=== PATIENT | female | born 1945 | race Two or more races ===

== ENCOUNTER → 2018-07-29 | Outpatient (CLI) | payer OTHER, MEDICAID | END | disposition home or self-care (01) | LOC: Rad HDHVI 08:00 | PROVIDERS: ATTEND Internal Medicine | DX: I08.3 Combined rheumatic disorders of mitral, aortic and tricuspid valves (principal); I10 Essential (primary) hypertension; E78.5 Hyperlipidemia, unspecified | CPT/HCPCS: 93306 ==

== ENCOUNTER → 2018-08-06 | Outpatient (CLI) | payer OTHER, MEDICAID ==
[~2018-08-06] VITALS: Ht 154.9 cm; Wt 79.8 kg
== END | disposition home or self-care (01) ==
LOC: Rad HDHVI 09:09
PROVIDERS: ATTEND Internal Medicine
DX: I10 Essential (primary) hypertension (principal); E03.9 Hypothyroidism, unspecified; E78.5 Hyperlipidemia, unspecified; I38 Endocarditis, valve unspecified; R63.8 Other symptoms and signs concerning food and fluid intake; Z86.79 Personal history of other diseases of the circulatory system
CPT/HCPCS: 78452; 93017; 96374; A9500

== ENCOUNTER → 2019-05-03 | Outpatient (CLI) | payer OTHER, MEDICAID | END | disposition home or self-care (01) | LOC: Rad HDHVI 08:03 | PROVIDERS: ATTEND Internal Medicine | DX: I11.9 Hypertensive heart disease without heart failure (principal); I35.0 Nonrheumatic aortic (valve) stenosis; E78.5 Hyperlipidemia, unspecified | CPT/HCPCS: 93306 ==

== ENCOUNTER → 2019-07-07 | Outpatient (CLI) | payer OTHER, MEDICAID | END | disposition home or self-care (01) | LOC: Rad HDHVI 08:31 | PROVIDERS: ATTEND Internal Medicine | DX: R09.89 Other specified symptoms and signs involving the circulatory and respiratory systems (principal); G45.9 Transient cerebral ischemic attack, unspecified | CPT/HCPCS: 93880 ==

== ENCOUNTER → 2021-06-26 | Outpatient (CLI) | payer OTHER, MEDICAID | END | disposition home or self-care (01) | LOC: Rad HDHVI 14:50 | PROVIDERS: ATTEND Internal Medicine | DX: I08.3 Combined rheumatic disorders of mitral, aortic and tricuspid valves (principal); I11.9 Hypertensive heart disease without heart failure; R06.02 Shortness of breath | CPT/HCPCS: 93306 ==

== ENCOUNTER → 2022-04-29 | Outpatient (CLI) | payer OTHER, MEDICAID, MEDICARE | END | disposition home or self-care (01) | LOC: Rad HDHVI 08:06 | PROVIDERS: ATTEND Internal Medicine | DX: I08.2 Rheumatic disorders of both aortic and tricuspid valves (principal); R07.89 Other chest pain; I10 Essential (primary) hypertension | CPT/HCPCS: 93306 ==

== ENCOUNTER → 2022-10-16 | Day surgery (SDC) | payer OTHER, MEDICAID ==
[2022-10-14 10:10] LABS: Basophils # (auto) 0.1 10 ^3/uL (0-0.2); Eosinophils # (auto) 0.2 10 ^3/uL (0-0.8); Eosinophils % (auto) 2.9 % (0.0-7.0); Lymphocytes # (auto) 2.2 10 ^3/uL (0.4-5.4); Monocytes # (auto) 0.5 10 ^3/uL (0-1.3); Neutrophils # (auto) 4.7 10 ^3/uL (1.6-8.6); Red Cell Distribution Width 17.6 % (11.8-14.3)
[2022-10-14 10:13] LABS: Basophils % (auto) 1.1 % (0.0-2.0); Hematocrit 29.5 % (36.0-46.0); Hemoglobin 9.3 g/dL (12.2-16.2); Lymphocytes % (auto) 28.9 % (10.0-50.0); Mean Corpuscular Hemoglobin 22.9 pg (28.0-32.0); Mean Corpuscular Hgb Conc. 31.6 g/dL (32.0-36.0); Mean Corpuscular Volume 72.3 fL (80.0-100.0); Monocytes % (auto) 6.3 % (0.0-12.0); Neutrophils % (auto) 60.8 % (37.0-80.0); Red Blood Cells 4.08 10^6/uL (4.0-5.20); White Blood Cell 7.7 10^3/uL (4.4-10.8)
[2022-10-14 10:25] LABS: INR 1.03 (0.9-1.15); Partial Thromboplastin Time 28.8 sec (24.6-33.4)
[2022-10-14 10:47] LABS: Albumin 3.1 g/dL (3.4-5.0); BUN/Creatinine Ratio 21.7; Bilirubin, Total 0.3 mg/dL (0.2-1.0); Calcium 8.5 mg/dL (8.5-10.1); Potassium 4.2 mmol/L (3.5-5.1)
[~2022-10-16] VITALS: Ht 154.9 cm; Wt 73.5 kg
[~2022-10-16] MED LIST: AML5T PO; ASPI81CH59 PO; ATOR20TA PO; CHOL200021 PO; LEVO25TA6 PO; LOSA-69 PO; METO25TA5 PO; OMEP20TA PO; SACC250C PO
[2022-10-16] MEDS: fentaNYL CITRATE 100 MCG/2 ML VL ONE ×2 (15:38→15:44)
[2022-10-16] MEDS: MIDAZOLAM HCL 5 MG/ML-1ML VIAL ONE ×2 (15:38→15:44)
[2022-10-16] MEDS: diphenhdrAMINE HCL 50 MG/1 ML VL ONE ×2 (15:38→15:41)
[2022-10-16 16:25] VITALS: BP 156/61
== END | disposition home or self-care (01) ==
LOC: GI 13:19
PROVIDERS: ATTEND Internal Medicine Gastroenterology
DX: R93.3 Abnormal findings on diagnostic imaging of other parts of digestive tract (principal); K57.30 Diverticulosis of large intestine without perforation or abscess without bleeding; K52.89 Other specified noninfective gastroenteritis and colitis; K64.8 Other hemorrhoids; I10 Essential (primary) hypertension; E78.5 Hyperlipidemia, unspecified; E03.9 Hypothyroidism, unspecified; D64.9 Anemia, unspecified; Z79.899 Other long term (current) drug therapy; Z79.890 Hormone replacement therapy; Z20.822 Contact with and (suspected) exposure to COVID-19
CPT/HCPCS: 36415; 45380; 80053; 85025; 85610; 85730; 88305; J1200; J2250; J3010; J7030; U0003

== ENCOUNTER → 2022-10-29 | Outpatient (CLI) | payer OTHER, MEDICAID ==
[2022-10-29 10:21] LABS: Basophils # (auto) 0.1 10 ^3/uL (0-0.2); Eosinophils # (auto) 0.3 10 ^3/uL (0-0.8); Mean Corpuscular Volume 71.2 fL (80.0-100.0); Monocytes # (auto) 0.5 10 ^3/uL (0-1.3); White Blood Cell 7.8 10^3/uL (4.4-10.8)
[2022-10-29 10:24] LABS: Basophils % (auto) 0.9 % (0.0-2.0); Eosinophils % (auto) 3.4 % (0.0-7.0); Hematocrit 30.5 % (36.0-46.0); Hemoglobin 9.5 g/dL (12.2-16.2); Lymphocytes # (auto) 2.1 10 ^3/uL (0.4-5.4); Lymphocytes % (auto) 26.8 % (10.0-50.0); Mean Corpuscular Hemoglobin 22.2 pg (28.0-32.0); Mean Corpuscular Hgb Conc. 31.1 g/dL (32.0-36.0); Monocytes % (auto) 6.6 % (0.0-12.0); Neutrophils # (auto) 4.9 10 ^3/uL (1.6-8.6); Neutrophils % (auto) 62.3 % (37.0-80.0); Red Blood Cells 4.28 10^6/uL (4.0-5.20)
[2022-10-29 11:05] LABS: Potassium 4.1 mmol/L (3.5-5.1)
[2022-10-29 11:20] LABS: Albumin 3.3 g/dL (3.4-5.0); BUN/Creatinine Ratio 21.6; Bilirubin, Total 0.4 mg/dL (0.2-1.0); Calcium 8.9 mg/dL (8.5-10.1); Total Protein 6.9 g/dL (6.4-8.2)
== END | disposition home or self-care (01) ==
LOC: LAB 09:56
PROVIDERS: ATTEND Internal Medicine Gastroenterology
DX: R93.3 Abnormal findings on diagnostic imaging of other parts of digestive tract (principal); R10.11 Right upper quadrant pain; R97.8 Other abnormal tumor markers
CPT/HCPCS: 36415; 80053; 82105; 82378; 85025; 86301

== ENCOUNTER → 2023-09-12 | Outpatient (CLI) | payer OTHER ==
[~2023-09-12] VITALS: Ht 152.4 cm; Wt 75.3 kg
[~2023-09-12] MED LIST changes: -LOSA-69 PO; +LOSA50TA46 PO
== END | disposition home or self-care (01) ==
LOC: Rad HDHVI 10:05
PROVIDERS: ATTEND Internal Medicine Cardiovascular Disease
DX: I11.0 Hypertensive heart disease with heart failure (principal); I50.30 Unspecified diastolic (congestive) heart failure; I35.8 Other nonrheumatic aortic valve disorders; E78.5 Hyperlipidemia, unspecified
CPT/HCPCS: 78452; 93017; 96374; A9500

== ENCOUNTER → 2024-08-23 | Outpatient (CLI) | payer OTHER ==
[~2024-08-23] MED LIST changes: -ASPI81CH59 PO; +CYAN-17 PO; +FAMO20TA10 PO; +FERR325T20 PO; +FOLI-119 PO; +LOSA-535 PO; -LOSA50TA46 PO; +OMEG-28 PO; -OMEP20TA PO
== END | disposition home or self-care (01) ==
LOC: Rad HDHVI 13:44
PROVIDERS: ATTEND Internal Medicine Cardiovascular Disease
DX: I11.0 Hypertensive heart disease with heart failure (principal); I50.33 Acute on chronic diastolic (congestive) heart failure
CPT/HCPCS: 93880

== ENCOUNTER → 2024-08-31 | Outpatient (CLI) | payer OTHER | END | disposition home or self-care (01) | LOC: Rad HDHVI 09:59 | PROVIDERS: ATTEND Internal Medicine Cardiovascular Disease | DX: I08.0 Rheumatic disorders of both mitral and aortic valves (principal); I10 Essential (primary) hypertension; R00.2 Palpitations | CPT/HCPCS: 93306 ==

== ENCOUNTER 2024-10-06 06:57 | Day surgery (SDC) | payer OTHER, MEDICAID ==
[2024-10-04 15:21] LABS: Basophils # (auto) 0.1 10 ^3/uL (0-0.2); Basophils % (auto) 0.9 % (0.0-2.0); Eosinophils # (auto) 0.2 10 ^3/uL (0-0.8); Hematocrit 37.2 % (36.0-46.0); Hemoglobin 12.4 g/dL (12.2-16.2); Lymphocytes % (auto) 32.7 % (10.0-50.0); Mean Corpuscular Hgb Conc. 33.4 g/dL (32.0-36.0); Mean Corpuscular Volume 86.8 fL (80.0-100.0); Monocytes # (auto) 0.5 10 ^3/uL (0-1.3); Monocytes % (auto) 5.3 % (0.0-12.0); Neutrophils # (auto) 5.5 10 ^3/uL (1.6-8.6); Neutrophils % (auto) 59.1 % (37.0-80.0); Platelet Count (auto) 259 10^3/uL (140-450); Red Blood Cells 4.29 10^6/uL (4.0-5.20); Red Cell Distribution Width 14.6 % (11.8-14.3); White Blood Cell 9.3 10^3/uL (4.4-10.8)
[2024-10-04 15:47] LABS: INR 1.03 (0.9-1.15); Partial Thromboplastin Time 29.4 SEC (24.5-34.5); Prothrombin Time 10.9 sec (9.3-11.8)
[2024-10-04 16:07] LABS: Chloride 108 mmol/L (98-107); Potassium 4.2 mmol/L (3.5-5.1); Sodium 138 mmol/L (136-145)
[2024-10-04 16:08] LABS: Anion Gap 6 (5-15); Calcium 9.8 mg/dL (8.7-10.4); Carbon Dioxide 24 mmol/L (20-31)
[2024-10-04 16:13] LABS: BUN/Creatinine Ratio 18.5 (10.0-20.0); Blood Urea Nitrogen 17 mg/dL (9-23); Glucose 97 mg/dL (74-106)
[2024-10-06] VITALS (10 sets, daily range): BP systolic 123–151; BP diastolic 58–68; PULSE 57–62; RESP 11–16; TEMP 98.3; O2SAT 95–97
[~2024-10-06] VITALS: Ht 152.4 cm; Wt 72.6 kg
[~2024-10-06 06:57] MED LIST changes: -FAMO20TA10 PO; -FERR325T20 PO; +LACTCAP35 OR; +PANT40T PO; -SACC250C PO; +SUCR1TAB31 OR
[2024-10-06] MEDS ORDERED: SODIUM CHL 0.9% 0 ML ONE (08:16)
[2024-10-06] MEDS ORDERED: LIDOCAINE 2%HCL (LOCAL ANESTH.) INJ 20ML MDV ONE (08:16)
[2024-10-06] MEDS ORDERED: ANGIOMAX 250 MG VIAL IV ONE (08:16)
[2024-10-06] MEDS ORDERED: MIDAZOLAM HCL 2MG/2ML 2ml VIAL (1mg/ml) ONE (08:16)
[2024-10-06] MEDS ORDERED: fentaNYL CITRATE 100 MCG/2 ML VL ONE (08:16)
[2024-10-06] MEDS ORDERED: IOHEXOL 350 MG/ML 100ML IJ ONE (08:22)
--- NOTE | 2024-10-15 15:12 | DVHOP ---
DATE OF SURGERY: 10/06/2024 PROCEDURES PERFORMED: * Selective left and right coronary angiography. * Ventriculogram. * Right iliac angiography. * Conscious sedation was given. DESCRIPTION OF PROCEDURE: The patient was prepped and draped in a sterile condition. 1% Xylocaine used to anesthetize the right groin. Using Cook needle, right femoral artery was engaged with Seldinger technique. A 6-Swiss sheath into the right femoral artery. Using 6-Swiss JL4 catheter and 6-Swiss JR4 catheter, selective left and right coronary angiographies were performed. Using a 6-Swiss pigtail catheter, ventriculogram was done. Total contrast used 40 mL Optiray. Total fluoro time was 1 minute. RESULTS: * Left main: Normal. * Left anterior descending artery: Mild intimal irregularity without any flow restrictive lesion. * Circumflex: Mild intimal irregularity without any flow restrictive lesion, is a codominant system. * Right coronary artery: Mild intimal irregularity without any flow restrictive lesion. It is large caliber vessel measuring more than 4.5 mm in diameter. * Left ventricular function was preserved with an estimated EF of greater than 60% with an LVEDP of 18 mmHg with no gradient across the aortic valve. Thus, the patient with mild elevation in LVEDP, otherwise normal coronary anatomy with mild intimal irregularity throughout the coronary vasculature with a large caliber coronary arteries. At this time, no catheter-based or surgical intervention is warranted. Conservative medical management, aggressive risk modification. Matt Villaseñor MD SA/LOS TID: [id number] RECEIPT: [id number]
== END 2024-10-06 12:07 | disposition home or self-care (01) ==
LOC: CATH 06:57
PROVIDERS: ATTEND Internal Medicine Cardiovascular Disease
DX: R06.02 Shortness of breath (principal); I25.10 Atherosclerotic heart disease of native coronary artery without angina pectoris; I35.0 Nonrheumatic aortic (valve) stenosis; Z79.899 Other long term (current) drug therapy
CPT/HCPCS: 36415; 80048; 85025; 85610; 85730; 93460; C1760; C1769; C1887; C1894; J2250; J3010; J7030; Q9967; 99152

== ENCOUNTER → 2025-03-21 | Outpatient (CLI) | payer OTHER, MEDICAID | END | disposition home or self-care (01) | LOC: Rad HDHVI 13:54 | PROVIDERS: ATTEND Internal Medicine Cardiovascular Disease | DX: I08.0 Rheumatic disorders of both mitral and aortic valves (principal); I35.0 Nonrheumatic aortic (valve) stenosis | CPT/HCPCS: 93306 ==

== ENCOUNTER 2025-03-24 03:40 | Inpatient (IN) | payer OTHER, MEDICAID ==
[~2025-03-24] VITALS: Ht 154.9 cm; Wt 71.2 kg
--- NOTE | 2025-03-24 03:58 | ED.PDOC ---
GI ASSESSMENT HPI Comments 79 year old female presents to the ED with a chief complaint of abdominal pain onset 2 days. Per EMS, patient has been experiencing abdominal pain as well as nausea, vomiting, diarrhea for the past two days, worsen this morning. Patient was seen at an urgent care yesterday, states she was not prescribed medication. PMHx HTN, GERD. Denies chest pain, shortness of breath, dizziness, dysuria, hematuria, fevers, chills, headache. No other symptoms or modifying factors present at this time. Time Seen by MD: 03:46 Reviewed Notes: Medications, Allergies Allergies: Coded Allergies: No Known Drug Allergy (Verified Allergy, Unknown, 07/17/21) Home Meds Reported Medications Pantoprazole Sodium Sesquihydr (Pantoprazole Sodium) 40 Mg Tab, 20 MG PO DAILY for GERD, TAB 10/04/24 Sucralfate (CARAFATE) 1 Gm Tab, 1 GM OR BID for GERD, TAB 10/04/24 Lactobacillus (PROBIOTIC) Cap, 1 OR DAILY, CAP 10/04/24 Cyanocobalamin (B12) 1,000 Mcg Cap, 1000 MCG PO DAILY, CAP 02/13/24 Folic Acid (Folic Acid) 1 Mg Tab, 1 MG PO DAILY, TAB 02/13/24 Wolcott-3 Fatty Acids (Fish Oil 1200 mg) 1 Cap Cap, 1 CAP PO DAILY, CAP 02/13/24 Losartan Potassium (Losartan Potassium) 100 Mg Tab, 100 MG PO DAILY, TAB 02/13/24 Cholecalciferol (D3) 2,000 Unit Tab, 2000 UNIT PO DAILY, TAB 10/14/22 Metoprolol Tartrate (Metoprolol Tartrate) 25 Mg Tab, 25 MG PO DAILY, TAB 10/14/22 Levothyroxine Sodium (Levothyroxine Sodium) 25 Mcg Tab, 50 MCG PO DAILY, TAB 10/14/22 Atorvastatin Calcium (Lipitor) 20 Mg Tab, 20 MG PO DAILY, TAB 10/14/22 Amlodipine Besylate (NORVASC TABLET) 5 Mg Tb, 10 MG PO DAILY, TAB 10/14/22 Information Source: Patient, Emergency Med Personnel Mode of Arrival: EMS Timing: Days Duration: Since onset Prehospital treatment: None Quality: Sharp Severity: Moderate Recent: None Recent Hx of: None Pain Location: Diffuse Associated sign and symptoms: Nausea, Vomiting, Diarrhea, Abdominal Pain Past Medical History PAST MEDICAL HISTORY: GERD, HTN, Thyroid Surgical History: Denies all surgeries SAMPLE MAKER History: No Pertinent SAMPLE MAKER History Family History Family History: Reviewed,noncontributory to illness, No family hx of Cancer, No family hx of DM, No family hx of Heart gracie, No family hx of HTN, No family hx ofKidney gracie, No family hx of Liver gracie, No family hx of Lung gracie, No family hx of Stroke Social History Smoker: Non-Smoker Alcohol: Denies ETOH Use Drugs: Denies Drug Use Lives In: Home Constitutional: denies: chills, diaphoresis, fatigue, fever, malaise, sweats, weakness, others EENTM: denies: blurred vision, double vision, ear bleeding, ear discharge, ear drainage, ear pain, ear ringing, eye pain, eye redness, hearing loss, mouth pain, mouth swelling, nasal discharge, nose bleeding, nose congestion, nose pain, photophobia, tearing, throat pain, throat swelling, voice changes, others Respiratory: denies: cough, hemoptysis, orthopnea, SOB at rest, shortness of breath, SOB with excertion, stridor, wheezing, others Cardiovascular: denies: chest pain, dizzy spells, diaphoresis, Dyspnea on exertion, edema, irregular heart beat, left arm pain, lightheadedness, palpitations, PND, syncope, others Gastrointestinal: reports: abdominal pain, diarrhea, nausea, vomiting; denies: abdomen distended, blood streaked bowels, constipated, dysphagia, difficulty swallowing, hematemesis, melena, poor appetite, poor fluid intake, rectal bleeding, rectal pain, others Genitourinary: denies: abnormal vagina bleeding, burning, dyspareunia, dysuria, flank pain, frequency, hematuria, incontinence, pain, , vagina discharge, urgency, others Neurological: denies: dizziness, fainting, headache, left sided numbness, left sided weakness, numbness, paresthesia, pre-existing deficit, right sided numbness, right sided weakness, seizure, speech problems, tingling, tremors, weakness, others Musculoskeletal: denies: back pain, gout, joint pain, joint swelling, muscle pain, muscle stiffness, neck pain, others Integumetry: denies: bruises, change in color, change in hair/nails, dryness, laceration, lesions, lumps, rash, wounds, others Allergic/Immunocompromised: denies: Difficulty Healing, Frequent Infections, Hives, Itching, others Hematologic/Lymphatic: denies: anemia, blood clots, easy bleeding, easy bruising, swollen glands, others Endocrine: denies: excessive hunger, excessive sweating, excessive thirst, excessive urination, flushing, intolerance to cold, intolerance to heat, unexplained weight gain, unexplained weight loss, others Psychiatric: denies: anxiety, bipolar disorder, depression, hopeless, panic disorder, schizophrenia, sleepless, suicidal, others All Other Systems: Reviewed and Negative Physical Exam General Appearance: No Apparent Distress, Normal HEENT: Normal ENT Inspection, Pharynx Normal, TMs Normal Neck: Full Range of Motion, Non-Tender, Normal, Normal Inspection Respiratory: Chest Non-Tender, Lungs Clear, No Accessory Muscle Use, No Respiratory Distress, Normal Breath Sounds Cardiovascular: No Edema, No JVD, No Murmur, No Gallop, Normal Peripheral Pulses, Regular Rate/Rhythm Breast Exam: Deferred Gastrointestinal: No Organomegaly, Non Tender, No Pulsatile Mass, Normal Bowel Sounds, Soft Genitalia: Deferred Pelvic: Deferred Rectal: Deferred Extremities: No calf tenderness, Normal capillary refill, Normal inspection, Normal range of motion, Non-tender, No pedal edema Musculoskeletal : Apperance: Normal Neurologic: Alert, jack tamp operator II-XII nml as Tested, No Motor Deficits, Normal Affect, Normal Mood, No Sensory Deficits Cerebellar Function: Normal Reflexes: Normal Skin: Dry, Normal Color, Warm Lymphatic: No Adenopathy Was a procedure done? Was a procedure done?: No GI differential Dx Differential Diagnosis: Appendicitis, Constipation, Gastritis/PUD, Gastroenteritis, UTI, Dehydration, Electrolyte Imbalance, Food Poisoning X-Ray, Labs, Meds, VS Vital Signs Date Time Temp Pulse Resp B/P (MAP) Pulse Ox O2 Delivery O2 Flow Rate FiO2 03/24/25 05:20 86 18 134/68 03/24/25 05:08 72 72 95 Room Air* 0 21 03/24/25 04:52 72 18 149/54 03/24/25 04:43 98.1 72 14 149/54 (85) 98 98.1 03/24/25 04:00 98.1 71 18 162/64 (96) 97 98.1 03/24/25 03:42 73 Lab Test 03/24/25 03:58 Range/Units White Blood Count 11.3 H 4.4-10.8 10^3/uL Red Blood Count 4.41 4.0-5.20 10^6/uL Hemoglobin 11.5 L 12.2-16.2 g/dL Hematocrit 34.6 L 36.0-46.0 % Mean Corpuscular Volume 78.4 L 80.0-100.0 fL Mean Corpuscular Hemoglobin 26.2 L 28.0-32.0 pg Mean Corpuscular Hemoglobin Concent 33.4 32.0-36.0 g/dL Red Cell Distribution Width 16.4 H 11.8-14.3 % Platelet Count 351 140-450 10^3/uL Mean Platelet Volume 9.0 6.9-10.8 fL Neutrophils (%) (Auto) 86.6 H 37.0-80.0 % Lymphocytes (%) (Auto) 8.6 L 10.0-50.0 % Monocytes (%) (Auto) 4.0 0.0-12.0 % Eosinophils (%) (Auto) 0.1 0.0-7.0 % Basophils (%) (Auto) 0.7 0.0-2.0 % Neutrophils # (Auto) 9.7 H 1.6-8.6 10 ^3/uL Lymphocytes # (Auto) 1.0 0.4-5.4 10 ^3/uL Monocytes # (Auto) 0.5 0-1.3 10 ^3/uL Eosinophils # (Auto) 0 0-0.8 10 ^3/uL Basophils # (Auto) 0.1 0-0.2 10 ^3/uL Nucleated Red Blood Cells 0.0 % Sodium Level 139 136-145 mmol/L Potassium Level 3.4 L 3.5-5.1 mmol/L Chloride Level 105 98-107 mmol/L Carbon Dioxide Level 23 20-31 mmol/L Anion Gap 11 5-15 Blood Urea Nitrogen 16 9-23 mg/dL Creatinine 0.81 0.550-1.02 mg/dL Glomerular Filtration Rate Calc 73 >90 mL/min BUN/Creatinine Ratio 19.8 10.0-20.0 Serum Glucose 139 H 74-106 mg/dL Calcium Level 9.5 8.7-10.4 mg/dL Total Bilirubin 0.4 0.2-1.0 mg/dL Aspartate Amino Transferase (AST) 21 13-40 U/L Alanine Aminotransferase (ALT) 11 7-40 U/L Alkaline Phosphatase 83 46-116 U/L Troponin I High Sensitivity 8 </=34 ng/L Total Protein 6.9 5.7-8.2 g/dL Albumin 4.1 3.2-4.8 g/dL Current Medications Medications (Trade) Dose Ordered Sig/Gilbert Route Start Time Stop Time Status Last Admin Sodium Chloride 1,000 ml @ 1,000 mls/hr Q1H ONCE IV 03/24/25 04:00 03/24/25 04:59 DC 03/24/25 04:53 Ondansetron HCl (Zofran) 4 mg ONCE ONCE IV 03/24/25 04:00 03/24/25 04:01 DC 03/24/25 04:52 Morphine Sulfate 4 mg ONCE ONCE IV 03/24/25 04:00 03/24/25 04:01 DC 03/24/25 04:52 Famotidine (Pepcid Injection) 20 mg ONCE ONCE IV 03/24/25 04:00 03/24/25 04:01 DC 03/24/25 04:52 Time of 1ST Reevaluation: 04:16 Reevaluation 1ST: Unchanged Patient Education/Counseling: Diagnosis, Treatment, Prognosis Family Education/Counseling: No Family Present Departure 1 Departure Time of Disposition: 05:59 (Patient with intractable nausea and vomiting. Patient's labs are benign. We will admit patient for further workup and expert consultation) Impression: Primary Impression: Intractable abdominal pain Additional Impression: Projectile vomiting with nausea Disposition: ADMITTED INPATIENT Admit to: Med Surg Condition: Serious Critical Care Note Critical Care Time?: Yes Critical care comment: Intractable abdominal pain Authorized and Performed by: Bora Gilliam MD Total critical care time: Approximately 36 minutes Due to a high probability of clinically significant, life threatening deterioration, the patient required my highest level of preparedness to intervene emergently and I personally spent this critical care time directly and personally managing the patient. This critical care time included obtaining a history; examining the patient; pulse oximetry; ordering and review of studies; arranging urgent treatment with development of a management plan; evaluation of patient's response to treatment; frequent reassessment; and, discussions with other providers. This critical care time was performed to assess and manage the high probability of imminent, life-threatening deterioration that could result in multi-organ failure. It was exclusive of separately billable procedures and treating other patients and teaching time. Please see my other sections and the rest of the note for further information on patient assessment and treatment. Stability Stability form required: No I personally scribed for BORA GILLIAM MD ([email or web address]) on 03/24/25 at 03:58. Electronically submitted by Jasmine Rich ([email or web address]). BORA GILLIAM MD March 24, 2025 03:58
[2025-03-24 04:23] LABS: Basophils # (auto) 0.1 10 ^3/uL (0-0.2); Eosinophils # (auto) 0 10 ^3/uL (0-0.8); Eosinophils % (auto) 0.1 % (0.0-7.0); Monocytes # (auto) 0.5 10 ^3/uL (0-1.3)
[2025-03-24 04:26] LABS: Basophils % (auto) 0.7 % (0.0-2.0); Hematocrit 34.6 % (36.0-46.0); Hemoglobin 11.5 g/dL (12.2-16.2); Lymphocytes % (auto) 8.6 % (10.0-50.0); Mean Corpuscular Hemoglobin 26.2 pg (28.0-32.0); Mean Corpuscular Hgb Conc. 33.4 g/dL (32.0-36.0); Mean Corpuscular Volume 78.4 fL (80.0-100.0); Neutrophils # (auto) 9.7 10 ^3/uL (1.6-8.6); Neutrophils % (auto) 86.6 % (37.0-80.0); Platelet Count (auto) 351 10^3/uL (140-450); Red Blood Cells 4.41 10^6/uL (4.0-5.20); Red Cell Distribution Width 16.4 % (11.8-14.3); White Blood Cell 11.3 10^3/uL (4.4-10.8)
[2025-03-24 04:32] LABS: Alanine Aminotransferase 11 U/L (7-40); Alkaline Phosphatase 83 U/L (46-116); Anion Gap 11 (5-15); Aspartate Aminotransferase 21 U/L (13-40); BUN/Creatinine Ratio 19.8 (10.0-20.0); Blood Urea Nitrogen 16 mg/dL (9-23); Calcium 9.5 mg/dL (8.7-10.4); Carbon Dioxide 23 mmol/L (20-31); Chloride 105 mmol/L (98-107); Sodium 139 mmol/L (136-145); Total Protein 6.9 g/dL (5.7-8.2)
[2025-03-24 04:33] LABS: Albumin 4.1 g/dL (3.2-4.8); Bilirubin, Total 0.4 mg/dL (0.2-1.0)
--- NOTE | 2025-03-24 04:39 | ECG ---
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
[2025-03-24 04:48] LABS: Glucose 139 mg/dL (74-106); Potassium 3.4 mmol/L (3.5-5.1)
[2025-03-24] MEDS: MORPHINE SULFATE 4 MG/ML SYR/VIAL IV ONE (04:52)
[2025-03-24] MEDS: FAMOTIDINE (10MG/ML) 2ML VL IV ONE (04:52)
[2025-03-24] MEDS: ONDANSETRON HCL 4 MG/2 ML VIAL IV ONE (04:52)
[2025-03-24] MEDS: SODIUM CHLORIDE 0.9% 1,000 ML IV ONE (04:53)
[2025-03-24 05:08] VITALS: PULSE 72; RESP 72; O2SAT 95
[2025-03-24] MEDS: IOHEXOL 300 MG/ML 100ML BOTTLE IJ ONE (05:40)
--- NOTE | 2025-03-24 06:03 | DVH ---
EXAM: CT Abdomen and Pelvis With Intravenous Contrast CLINICAL INDICATION: abdominal pain TECHNIQUE: Axial computed tomography images of the abdomen and pelvis with intravenous contrast. Th is CT exam was performed using one or more of the following dose reduction techniques: automated exp osure control, adjustment of the mA and/or kV according to patient size, and/or use of iterative george nstruction technique. CONTRAST: COMPARISON: None FINDINGS: LUNG BASES: Unremarkable. No mass. No consolidation. ABDOMEN: LIVER: Multiple hepatic lesions, some are hypodense and others appears to be heterogeneous. Furthe r evaluation with MRI with and without contrast using hepatic mass protocol is recommended. GALLBLADDER AND BILE DUCTS: Gallbladder is surgically absent. No ductal dilation. PANCREAS: Unremarkable. No mass. No ductal dilation. SPLEEN: Unremarkable. No splenomegaly. ADRENALS: Unremarkable. No mass. KIDNEYS AND URETERS: Bilateral simple renal cysts. No hydronephrosis. STOMACH AND BOWEL: Multiple distended small bowel with air-fluid levels measuring up to 3.2 cm in d iameter, concerning for small bowel obstruction. No pneumoperitoneum. Colonic diverticulosis without acute diverticulitis. PELVIS: APPENDIX: No findings to suggest acute appendicitis. BLADDER: Unremarkable. No mass. REPRODUCTIVE: Unremarkable as visualized. ABDOMEN and PELVIS: INTRAPERITONEAL SPACE: See above. BONES/JOINTS: No acute fracture. No dislocation. SOFT TISSUES: Unremarkable. VASCULATURE: Unremarkable. No abdominal aortic aneurysm. LYMPH NODES: Unremarkable. No enlarged lymph nodes. OTHER FINDINGS: . . . IMPRESSION: 1. Multiple hepatic lesions, some are hypodense and others appears to be heterogeneous. Further johny luation with MRI with and without contrast using hepatic mass protocol is recommended. 2. Multiple distended small bowel with air-fluid levels measuring up to 3.2 cm in diameter, concerni ng for small bowel obstruction. No pneumoperitoneum. 3. Bilateral simple renal cysts. 4. Colonic diverticulosis without acute diverticulitis.
[2025-03-24] MEDS ORDERED: ONDANSETRON HCL 4 MG/2 ML VIAL IV PRN (07:00)
[2025-03-24] MEDS ORDERED: ACETAMINOPHEN 325 MG TAB PO PRN (07:00)
[2025-03-24] MEDS ORDERED: HYDROcodone-ACET 5/325MG TAB PO PRN (07:00)
[2025-03-24] MEDS: PIPERACILLIN-TAZOB 3.375GM 100 ML IV SCH (07:00)
[2025-03-24] MEDS ORDERED: MORPHINE SULFATE INJ 2 MG/ml SYRG IV PRN (07:00)
--- NOTE | 2025-03-24 07:21 | DVHHP2 ---
History of Present Illness Reason for Visit: Abdominal pain History of Present Illness Vesna Traore is an 79-year-old female with past medical history of hypertension, GERD, prediabetes, thyroid disease, EGD, thyroidectomy, cholecystectomy, and who presents to the ED with abdominal pain with nausea and vomiting. Patient reports that the pain is 8/10 pressure-like and intermittent in nature. Patient also states that she uses a cane to help with ambulation with an unsteady gait. Patient denies use of drugs, drinking, and smoking. Patient denies chest pain, shortness of breath, fever, chills, lightheadedness, weakness, dizziness, diarrhea, recent trauma or injury, recent travels, or recent sick contacts. Cardiovascular: HTN GI: GERD Endocrine: Hypothyroidism Past Surgical History: Cholecystectomy, , Other (Thyroidectomy and EGD) Family History: None Smoke: No ALCOHOL: none Drugs: None Lives: with Family Domestic Violence: Neg Review of Systems Gastrointestinal: Nausea, Vomiting, Abdominal Pain Allergies: Coded Allergies: No Known Drug Allergy (Verified Allergy, Unknown, 07/17/21) Exam Vital Signs Vital Signs Date Time Temp Pulse Resp B/P (MAP) Pulse Ox O2 Delivery O2 Flow Rate FiO2 03/24/25 05:20 86 18 134/68 03/24/25 05:08 95 Room Air* 0 21 03/24/25 04:43 98.1 98.1 General Appearance: Alert, Oriented X3, Cooperative, No acute distress HEENT: Atraumatic, PERRLA, EOMI, Mucous membr. moist/pink Respiratory: Clear to auscultation, Normal air movement Cardiovascular: Regular rate, Normal S1, Normal S2, No murmurs Abdominal: Normal bowel sounds, Soft Extremities: No clubbing, No cyanosis, Normal pulses Skin: No significant lesion Neuro: Normal speech, Normal tone, Sensation intact Psych/Mental Status: Mental status NL, Mood NL Labs/Xrays Labs Test 03/24/25 03:58 Range/Units White Blood Count 11.3 H 4.4-10.8 10^3/uL Red Blood Count 4.41 4.0-5.20 10^6/uL Hemoglobin 11.5 L 12.2-16.2 g/dL Hematocrit 34.6 L 36.0-46.0 % Mean Corpuscular Volume 78.4 L 80.0-100.0 fL Mean Corpuscular Hemoglobin 26.2 L 28.0-32.0 pg Mean Corpuscular Hemoglobin Concent 33.4 32.0-36.0 g/dL Red Cell Distribution Width 16.4 H 11.8-14.3 % Platelet Count 351 140-450 10^3/uL Mean Platelet Volume 9.0 6.9-10.8 fL Neutrophils (%) (Auto) 86.6 H 37.0-80.0 % Lymphocytes (%) (Auto) 8.6 L 10.0-50.0 % Monocytes (%) (Auto) 4.0 0.0-12.0 % Eosinophils (%) (Auto) 0.1 0.0-7.0 % Basophils (%) (Auto) 0.7 0.0-2.0 % Neutrophils # (Auto) 9.7 H 1.6-8.6 10 ^3/uL Lymphocytes # (Auto) 1.0 0.4-5.4 10 ^3/uL Monocytes # (Auto) 0.5 0-1.3 10 ^3/uL Eosinophils # (Auto) 0 0-0.8 10 ^3/uL Basophils # (Auto) 0.1 0-0.2 10 ^3/uL Nucleated Red Blood Cells 0.0 % Sodium Level 139 136-145 mmol/L Potassium Level 3.4 L 3.5-5.1 mmol/L Chloride Level 105 98-107 mmol/L Carbon Dioxide Level 23 20-31 mmol/L Anion Gap 11 5-15 Blood Urea Nitrogen 16 9-23 mg/dL Creatinine 0.81 0.550-1.02 mg/dL Glomerular Filtration Rate Calc 73 >90 mL/min BUN/Creatinine Ratio 19.8 10.0-20.0 Serum Glucose 139 H 74-106 mg/dL Calcium Level 9.5 8.7-10.4 mg/dL Total Bilirubin 0.4 0.2-1.0 mg/dL Aspartate Amino Transferase (AST) 21 13-40 U/L Alanine Aminotransferase (ALT) 11 7-40 U/L Alkaline Phosphatase 83 46-116 U/L Troponin I High Sensitivity 8 </=34 ng/L Total Protein 6.9 5.7-8.2 g/dL Albumin 4.1 3.2-4.8 g/dL EXAM: CT Abdomen and Pelvis With Intravenous Contrast CLINICAL INDICATION: abdominal pain TECHNIQUE: Axial computed tomography images of the abdomen and pelvis with intravenous contrast. This CT exam was performed using one or more of the following dose reduction techniques: automated exposure control, adjustment of the mA and/or kV according to patient size, and/or use of iterative reconstruction technique. CONTRAST: COMPARISON: None FINDINGS: LUNG BASES: Unremarkable. No mass. No consolidation. ABDOMEN: LIVER: Multiple hepatic lesions, some are hypodense and others appears to be heterogeneous. Further evaluation with MRI with and without contrast using hep atic mass protocol is recommended. GALLBLADDER AND BILE DUCTS: Gallbladder is surgically absent. No ductal dilation. PANCREAS: Unremarkable. No mass. No ductal dilation. SPLEEN: Unremarkable. No splenomegaly. ADRENALS: Unremarkable. No mass. KIDNEYS AND URETERS: Bilateral simple renal cysts. No hydronephrosis. STOMACH AND BOWEL: Multiple distended small bowel with air-fluid levels measuring up to 3.2 cm in diameter, concerning for small bowel obstruction. No pneumoperitoneum. Colonic diverticulosis without acute diverticulitis. PELVIS: APPENDIX: No findings to suggest acute appendicitis. BLADDER: Unremarkable. No mass. REPRODUCTIVE: Unremarkable as visualized. ABDOMEN and PELVIS: INTRAPERITONEAL SPACE: See above. BONES/JOINTS: No acute fracture. No dislocation. SOFT TISSUES: Unremarkable. VASCULATURE: Unremarkable. No abdominal aortic aneurysm. LYMPH NODES: Unremarkable. No enlarged lymph nodes. OTHER FINDINGS: . . . IMPRESSION: 1. Multiple hepatic lesions, some are hypodense and others appears to be heterogeneous. Further evaluation with MRI with and without contrast using hepatic mass protocol is recommended. 2. Multiple distended small bowel with air-fluid levels measuring up to 3.2 cm in diameter, concerning for small bowel obstruction. No pneumoperitoneum. 3. Bilateral simple renal cysts. 4. Colonic diverticulosis without acute diverticulitis. Assessment/Plan Assessment/Plan Assessment Intractable abdominal pain probable small bowel obstruction Leukocytosis rule out sepsis versus peritonitis Hepatic lesions rule out mass Hypokalemia Bilateral simple renal cysts Colonic diverticulosis History of hypertension History of GERD History of prediabetes History of thyroid disease with thyroidectomy History of EGD History of cholecystectomy History of Plan Admit to tele for monitoring Replete lytes IV antibiotics-ceftriaxone Blood cultures Lactic Urine cultures CT abdomen and pelvis noted PPIs Pain management Antiemetics NS 1 L given ED NG tube ordered in ED Troponin negative EKG noted NPO IV fluids Hemoglobin A1c Home medications reconciled DVT prophylaxis-SCDs PUD prophylaxis-PPIs Discussed plan of care with patient and nurse MRI with and without contrast ordered as recommended by radiologist General surgery consulted by ED Plan discussed with: Patient My Orders Orders - TOM HERNANDEZ Procedure Category Date Status Time Admit ADMIT 03/24/25 Transmitted 06:56 Allergies RASHEED 03/24/25 Transmitted 06:56 Code Status CODE 03/24/25 Transmitted 06:56 0.9% Ns 1000 Ml PHA 03/24/25 Transmitted 07:00 Hydrocodone-Acet PHA 03/24/25 Transmitted 5/325mg Tab ([place] 07:00 Ondansetron Hcl PHA 03/24/25 Transmitted (Zofran) 07:00 Complete Blood Count LAB 03/25/25 Verified 04:00 Comprehensive LAB 03/25/25 Verified Metabolic Panel 04:00 Npo (Nothing By DIET 03/24/25 Transmitted Mouth) Diet Breakfast Acetaminophen Tablet PHA 03/24/25 Transmitted (Tylenol Tablet) 07:00 Morphine Sulfate PHA 03/24/25 Transmitted Injection 07:00 Sequential RASHEED 03/24/25 Transmitted Compression Device Potassium Er Tablet PHA 03/24/25 Transmitted (Klor-Con Tablet) 07:00 Zosyn Extended PHA 03/24/25 Transmitted Infusion 07:00 Amlodipine Tablet PHA 03/24/25 Transmitted (Norvasc Tablet) 10:00 Atorvastatin (Lipitor) PHA 03/24/25 Transmitted 10:00 Levothyroxine Tablet PHA 03/24/25 Transmitted (Synthroid Tablet) 10:00 Metoprolol Tartrate PHA 03/24/25 Transmitted Tablet (Lopressor Ta 10:00 Sucralfate Tab PHA 03/24/25 Transmitted (Carafate Tab) 10:00 (Nf) Cholecalciferol PHA 03/24/25 Transmitted (D3) 10:00 (Nf) Cyanocobalamin PHA 03/24/25 Transmitted (B12) 10:00 (Nf) Folic Acid PHA 03/24/25 Transmitted 10:00 (Nf) Losartan PHA 03/24/25 Transmitted Potassium 10:00 (Nf) Wingo-3 Fatty PHA 03/24/25 Transmitted Acids (Fish Oil 1200 10:00 Date of Service: March 24, 2025 Billing Provider: TOM HERNANDEZ Common Visit Codes: [id number] INP/OBS CARE (HIGH) TOM HERNANDEZ March 24, 2025 07:21
[2025-03-24] MEDS: PIPERACILLIN-TAZOB 3.375GM 100 ML IV ONE (07:49)
[2025-03-24] MEDS: SODIUM CHLORIDE 0.9% 1,000 ML IV SCH ×2 (07:50→12:39)
[2025-03-24 08:00] VITALS: PULSE 65; RESP 14; O2SAT 96
[2025-03-24 08:05] LABS: Urine Bacteria None Seen /hpf (None Seen)
[2025-03-24 08:30] LABS: Urine Blood Negative /uL (Negative); Urine Clarity Clear (Clear); Urine Color Light-Yellow (Yellow); Urine Protein, UAD TRACE (Negative); Urine Squamous Epithelial Cell FEW /hpf (<5); Urine Urobilinogen Normal (Negative); Urine pH 6.5 (5.0-9.0)
[2025-03-24 08:33] LABS: Urine Specific Gravity > 1.035 (1.001-1.035)
[2025-03-24 08:34] LABS: Urine WBC < 1 /HPF (0-5)
[2025-03-24] MEDS: LEVOTHYROXINE SODIUM 25 MCG TAB PO SCH (08:48)
[2025-03-24] MEDS: POTASSIUM CHL 20 Meq TABLET PO ONE (09:01)
--- NOTE | 2025-03-24 09:14 | DVH ---
CHEST RADIOGRAPH Indication: ng tube placement Technique: Single frontal view of the chest was obtained Comparison: None FINDINGS: Lines and Tubes: NG tube in stomach. Lungs: No focal consolidation. Pleura: No effusion. No pneumothorax. Cardiomediastinal contours: Unremarkable Bones: No acute osseous abnormality. IMPRESSION: No acute cardiopulmonary disease.
[2025-03-24] MEDS: PANTOPRAZOLE 40 MG/10 ML VIAL INJ IV SCH (09:45)
[2025-03-24] MEDS: OMEGA PO SCH (09:57)
[2025-03-24] MEDS: FATTY ACIDS PO SCH (09:57)
[2025-03-24] MEDS: CHOLECALCIFEROL (VITD3) 1,000UNIT=25mCg TAB PO SCH (09:57)
[2025-03-24] MEDS: amLODIPine BESYLATE 5 MG TAB PO SCH (09:57)
[2025-03-24] MEDS: FOLIC ACID 1 MG TAB PO SCH (09:57)
[2025-03-24] MEDS: SUCRALFATE 1 GM TAB PO SCH (09:57)
[2025-03-24] MEDS: CYANOCOBALAMIN 500 MCG TAB PO SCH (09:57)
[2025-03-24] MEDS: LOSARTAN POTASSIUM 50 MG TAB PO SCH (09:57)
[2025-03-24] MEDS ORDERED: POTASSIUM CHL 20MEQ/100ML 100 ML IV ONE (10:00)
[2025-03-24] MEDS ORDERED: METOPROLOL TARTRATE 25 MG TAB PO SCH (10:00)
[2025-03-24] MEDS ORDERED: SODIUM CHLORIDE 0.9% 1,000 ML IV SCH (10:15)
[2025-03-24] MEDS: POTASSIUM CHL 20MEQ/50ML 50 ML IV ONE (10:17)
--- NOTE | 2025-03-24 12:57 | DVHINCON2 ---
Date of service: March 24, 2025 Allergies: Coded Allergies: No Known Drug Allergy (Verified Allergy, Unknown, 07/17/21) Home Meds Reported Medications Pantoprazole Sodium Sesquihydr (Pantoprazole Sodium) 40 Mg Tab, 20 MG PO DAILY for GERD, TAB 10/04/24 Sucralfate (CARAFATE) 1 Gm Tab, 1 GM OR BID for GERD, TAB 10/04/24 Lactobacillus (PROBIOTIC) Cap, 1 OR DAILY, CAP 10/04/24 Cyanocobalamin (B12) 1,000 Mcg Cap, 1000 MCG PO DAILY, CAP 02/13/24 Folic Acid (Folic Acid) 1 Mg Tab, 1 MG PO DAILY, TAB 02/13/24 [place]-3 Fatty Acids (Fish Oil 1200 mg) 1 Cap Cap, 1 CAP PO DAILY, CAP 02/13/24 Losartan Potassium (Losartan Potassium) 100 Mg Tab, 100 MG PO DAILY, TAB 02/13/24 Cholecalciferol (D3) 2,000 Unit Tab, 2000 UNIT PO DAILY, TAB 10/14/22 Metoprolol Tartrate (Metoprolol Tartrate) 25 Mg Tab, 25 MG PO DAILY, TAB 10/14/22 Levothyroxine Sodium (Levothyroxine Sodium) 25 Mcg Tab, 50 MCG PO DAILY, TAB 10/14/22 Atorvastatin Calcium (Lipitor) 20 Mg Tab, 20 MG PO DAILY, TAB 10/14/22 Amlodipine Besylate (NORVASC TABLET) 5 Mg Tb, 10 MG PO DAILY, TAB 10/14/22 Current Medications Current Medications Medications (Trade) Dose Ordered Sig/Gilbert Route PRN Reason Start Time Stop Time Status Last Admin Sodium Chloride 1,000 ml @ 100 mls/hr Q10H IV 03/24/25 07:00 03/24/25 12:42 DC 03/24/25 07:50 Acetaminophen/ Hydrocodone Bitart ([place] 5/325MG Tab) 1 tab Q4HP PRN PO MODERATE PAIN (4-6 PAIN SCALE) 03/24/25 07:00 Ondansetron HCl (Zofran) 4 mg Q4HP PRN IV NAUSEA / VOMITING 03/24/25 07:00 Acetaminophen (Tylenol Tablet) 650 mg Q6HP PRN PO PAIN SCALE 1-3 OR TEMP>100.4 03/24/25 07:00 Morphine Sulfate 2 mg Q4HPRN PRN IV SEVERE PAIN (7-10 PAIN SCALE) 03/24/25 07:00 Piperacillin Sod/ Tazobactam Sod 100 ml @ 25 mls/hr Q8HR IV 03/24/25 07:00 Amlodipine Besylate (Norvasc Tablet) 10 mg DAILY PO 03/24/25 10:00 Atorvastatin Calcium (Lipitor) 20 mg HS PO 03/24/25 22:00 Levothyroxine Sodium (Synthroid Tablet) 50 mcg QAM PO 03/24/25 08:48 Metoprolol Tartrate (Lopressor Tablet) 25 mg DAILY PO 03/24/25 10:00 Hold Sucralfate (Carafate Tab) 1 gm BID PO 03/24/25 10:00 Cholecalciferol (Vitamin D3 Tablet) 2,000 unit DAILY PO 03/24/25 10:00 Cyanocobalamin (Vitamin B-12) 1,000 mcg DAILY PO 03/24/25 10:00 Folic Acid 1 mg DAILY PO 03/24/25 10:00 Losartan Potassium (Cozaar Tablet) 100 mg DAILY PO 03/24/25 10:00 Patient Own Medication 1 cap DAILY PO 03/24/25 10:00 Pantoprazole Sodium (Protonix) 40 mg DAILY IV 03/24/25 10:00 03/24/25 09:45 Hydralazine HCl (Apresoline Injection) 10 mg Q6HP PRN IV SBP>160 03/24/25 10:00 Sodium Chloride 1,000 ml @ 100 mls/hr Q10H IV 03/24/25 10:15 03/24/25 10:07 DC Sodium Chloride 1,000 ml @ 100 mls/hr Q10H IV 03/24/25 12:15 03/24/25 12:39 Vital Signs Vital Signs Date Time Temp Pulse Resp B/P (MAP) Pulse Ox O2 Delivery O2 Flow Rate FiO2 03/24/25 11:30 62 14 164/57 (92) 96 03/24/25 08:00 Room Air* 0 21 03/24/25 07:30 97.9 97.9 Labs/Diagnostic Data Labs Test 03/24/25 08:36 03/24/25 07:38 03/24/25 03:58 Range/Units Lactic Acid Level 0.6 0.4-2.0 mmol/L Urine Color Light-yellow Yellow Urine Clarity Clear Clear Urine pH 6.5 5.0-9.0 Urine Specific [place] > 1.035 H 1.001-1.035 Urine Protein Trace H Negative Urine Ketones Negative Negative Urine Blood Negative Negative /uL Urine Nitrite Negative Negative Urine Bilirubin Negative Negative Urine Urobilinogen Normal Negative mg/dL Urine Leukocyte Esterase Negative Negative /uL Urine RBC <1 0 - 4 /hpf Urine Microscopic WBC < 1 0-5 /HPF Urine Squamous Epithelial Cells Few <5 /hpf Urine Bacteria None seen None Seen /hpf Urine Glucose Normal Normal mg/dL White Blood Count 11.3 H 4.4-10.8 10^3/uL Red Blood Count 4.41 4.0-5.20 10^6/uL Hemoglobin 11.5 L 12.2-16.2 g/dL Hematocrit 34.6 L 36.0-46.0 % Mean Corpuscular Volume 78.4 L 80.0-100.0 fL Mean Corpuscular Hemoglobin 26.2 L 28.0-32.0 pg Mean Corpuscular Hemoglobin Concent 33.4 32.0-36.0 g/dL Red Cell Distribution Width 16.4 H 11.8-14.3 % Platelet Count 351 140-450 10^3/uL Mean Platelet Volume 9.0 6.9-10.8 fL Neutrophils (%) (Auto) 86.6 H 37.0-80.0 % Lymphocytes (%) (Auto) 8.6 L 10.0-50.0 % Monocytes (%) (Auto) 4.0 0.0-12.0 % Eosinophils (%) (Auto) 0.1 0.0-7.0 % Basophils (%) (Auto) 0.7 0.0-2.0 % Neutrophils # (Auto) 9.7 H 1.6-8.6 10 ^3/uL Lymphocytes # (Auto) 1.0 0.4-5.4 10 ^3/uL Monocytes # (Auto) 0.5 0-1.3 10 ^3/uL Eosinophils # (Auto) 0 0-0.8 10 ^3/uL Basophils # (Auto) 0.1 0-0.2 10 ^3/uL Nucleated Red Blood Cells 0.0 % Sodium Level 139 136-145 mmol/L Potassium Level 3.4 L 3.5-5.1 mmol/L Chloride Level 105 98-107 mmol/L Carbon Dioxide Level 23 20-31 mmol/L Anion Gap 11 5-15 Blood Urea Nitrogen 16 9-23 mg/dL Creatinine 0.81 0.550-1.02 mg/dL Glomerular Filtration Rate Calc 73 >90 mL/min BUN/Creatinine Ratio 19.8 10.0-20.0 Serum Glucose 139 H 74-106 mg/dL Hemoglobin A1c 5.7 <5.7 % A1C Calcium Level 9.5 8.7-10.4 mg/dL Total Bilirubin 0.4 0.2-1.0 mg/dL Aspartate Amino Transferase (AST) 21 13-40 U/L Alanine Aminotransferase (ALT) 11 7-40 U/L Alkaline Phosphatase 83 46-116 U/L Troponin I High Sensitivity 8 </=34 ng/L Total Protein 6.9 5.7-8.2 g/dL Albumin 4.1 3.2-4.8 g/dL Assessment patient admitted for abdominal pain and vomiting, ngt in place, multiplr cystic ledsions og ct scan ( liver and kidneys), MRI pending, abdomen non distended, minimally tender, will follow, Plan discussed with: Patient, Other NAVDEEP KILLIAN MD March 24, 2025 12:57
[2025-03-24] MEDS: GASTROGRAFIN 120 ML SOL ONE (13:05)
[2025-03-24 17:00] VITALS: BP 130/58; PULSE 68; RESP 17; TEMP 98; O2SAT 96
--- NOTE | 2025-03-24 19:06 | DVH ---
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 Study utilized 60 mL of Gastrografin via leonid ogastric tube Findings: Patient has had a cholecystectomy. After administration of oral Gastrografin via nasogastric tube stomach mucosa is normal. 1st portion of the duodenum is normal. And there is contrast in the proximal ileum after 15 minutes. After 30 min utes there is contrast in the distal ileum. After 45 minutes there is still contrast in the distal ileum but not apparently in the colon. After 1 hour there is no contrast seen in the colon. After 2 hours there is contrast seen in the ascending colon and minimal contrast is seen in the desce nding colon. IMPRESSION: 1. Transit time to the terminal ileum is normal. There is delayed filling of the colon. This does not rule out abnormality the terminal ileum or the colon. Please see ventilation equipment tender CT examination where ther e appears to be a small bowel ileus and diffuse disease involving the ascending colon and transverse colon
[2025-03-24 20:00] VITALS: PULSE 68; PULSE 86; RESP 18; O2SAT 98
[2025-03-24 21:00] VITALS: BP 111/60; PULSE 68; RESP 18; TEMP 98.1; O2SAT 98
[2025-03-24] MEDS: ATORVASTATIN 20 MG TAB PO SCH (22:00)
[2025-03-25] VITALS (11 sets, daily range): BP systolic 132–159; BP diastolic 46–82; PULSE 60–82; RESP 15–20; TEMP 97.4–97.9; O2SAT 95–98
[2025-03-25 07:45] LABS: Basophils # (auto) 0.1 10 ^3/uL (0-0.2); Eosinophils # (auto) 0.1 10 ^3/uL (0-0.8); Eosinophils % (auto) 1.5 % (0.0-7.0); Hematocrit 33.1 % (36.0-46.0); Hemoglobin 10.8 g/dL (12.2-16.2); Lymphocytes # (auto) 1.7 10 ^3/uL (0.4-5.4); Lymphocytes % (auto) 29.5 % (10.0-50.0); Mean Corpuscular Hemoglobin 26.3 pg (28.0-32.0); Mean Corpuscular Hgb Conc. 32.8 g/dL (32.0-36.0); Mean Corpuscular Volume 80.2 fL (80.0-100.0); Monocytes # (auto) 0.4 10 ^3/uL (0-1.3); Monocytes % (auto) 7.3 % (0.0-12.0); Neutrophils # (auto) 3.4 10 ^3/uL (1.6-8.6); Neutrophils % (auto) 60.7 % (37.0-80.0); Nucleated Red Blood Cells % 0.2 %; Platelet Count (auto) 300 10^3/uL (140-450); Red Blood Cells 4.12 10^6/uL (4.0-5.20); Red Cell Distribution Width 17.2 % (11.8-14.3); White Blood Cell 5.6 10^3/uL (4.4-10.8)
[2025-03-25 08:03] LABS: Alanine Aminotransferase 13 U/L (7-40); Albumin 3.8 g/dL (3.2-4.8); Alkaline Phosphatase 80 U/L (46-116); Anion Gap 12 (5-15); Aspartate Aminotransferase 17 U/L (13-40); BUN/Creatinine Ratio 13.6 (10.0-20.0); Blood Urea Nitrogen 12 mg/dL (9-23); Calcium 9.6 mg/dL (8.7-10.4); Carbon Dioxide 22 mmol/L (20-31); Glucose 98 mg/dL (74-106); Sodium 144 mmol/L (136-145); Total Protein 6.5 g/dL (5.7-8.2)
[2025-03-25 08:04] LABS: Bilirubin, Total 0.4 mg/dL (0.2-1.0); Chloride 110 mmol/L (98-107); Potassium 3.4 mmol/L (3.5-5.1)
--- NOTE | 2025-03-25 10:19 | DVHPN2 ---
Progress Note Date Seen: March 25, 2025 Medical Necessity Reason Pt with a Central, PICC or Fol: No Objective vital signs Vital Sign Date Time Temp Pulse Resp B/P (MAP) Pulse Ox O2 Delivery O2 Flow Rate FiO2 03/25/25 09:31 132/55 03/25/25 09:00 97.7 64 17 95 97.7 03/24/25 20:00 Room Air* 0 21 Total Intake and Output 03/24/25 03/24/25 03/25/25 15:00 23:00 07:00 Intake Total 550 ml 0 ml 0 ml Balance 550 ml 0 ml 0 ml medications Current Medications Medications Dose Ordered Sig/Gilbert Route Start Time Stop Time Status Last Admin Dose Admin Acetaminophen/ Hydrocodone Bitart 1 tab Q4HP PRN PO 03/24/25 07:00 Ondansetron HCl 4 mg Q4HP PRN IV 03/24/25 07:00 Acetaminophen 650 mg Q6HP PRN PO 03/24/25 07:00 Morphine Sulfate 2 mg Q4HPRN PRN IV 03/24/25 07:00 Piperacillin Sod/ Tazobactam Sod 100 ml @ 25 mls/hr Q8HR IV 03/24/25 07:00 03/25/25 06:16 25 MLS/HR Amlodipine Besylate 10 mg DAILY PO 03/24/25 10:00 Atorvastatin Calcium 20 mg HS PO 03/24/25 22:00 Levothyroxine Sodium 50 mcg QAM PO 03/24/25 08:48 Metoprolol Tartrate 25 mg DAILY PO 03/24/25 10:00 Hold Sucralfate 1 gm BID PO 03/24/25 10:00 Cholecalciferol 2,000 unit DAILY PO 03/24/25 10:00 Cyanocobalamin 1,000 mcg DAILY PO 03/24/25 10:00 Folic Acid 1 mg DAILY PO 03/24/25 10:00 Losartan Potassium 100 mg DAILY PO 03/24/25 10:00 Patient Own Medication 1 cap DAILY PO 03/24/25 10:00 Pantoprazole Sodium 40 mg DAILY IV 03/24/25 10:00 03/25/25 09:45 40 MG Hydralazine HCl 10 mg Q6HP PRN IV 03/24/25 10:00 Sodium Chloride 1,000 ml @ 100 mls/hr Q10H IV 03/24/25 12:15 03/24/25 12:39 100 MLS/HR laboratory and microbiology Laboratory Tests 03/25/25 06:54 Test 03/25/25 06:54 Range/Units Serum Glucose 98 74-106 mg/dL Problem List/Assessment/Plan Problem List/Assessment/Plan 03/25/25 gastrografin small bowel series essentially normal except abnormality at level of ascending colon. she had several bowel movements and is passing flatus, I have removed her NGT, she may have po liquids, requested GI consult for colonoscopy., abdomen is non tender, non distended Plan discussed with: Patient NAVDEEP KILLIAN MD March 25, 2025 10:19
--- NOTE | 2025-03-25 11:37 | DVHCONRES ---
Date Seen: March 25, 2025 Resident Creating Document: YONATHAN SINHA RESIDENT Referring Physician Dr Zuniga Reason for Consultation Colonoscopy History of Present Illness Vesna Traore is an 79-year-old [place]ic-speaking female with PMH of HTN, GERD, prediabetes, thyroid disease who presents to the ED with abdominal pain with nausea and vomiting for 2 days prior to admission. Patient reports that the pain is 8/10 pressure-like and intermittent in nature associated with nausea and vomiting. Patient reported no change in bowel movements. Patient denies weight changes, changes in appetite. GI was consulted for Colonoscopy due to abnormal small bowel series. EGD on 02/17/2024 showed hiatal hernia with erosive esophagitis along with [id number] gastritis, duodenitis and multiple benign-appearing gastric polyps which were removed by snare polypectomy. Colonoscopy done on 10/16/2022 which showed extensive diverticular disease mostly in sigmoid, minimal ileitis in distal portion of terminal ileum and trace internal hemorrhoids but no mass was noted on cecum, ascending colon Past Medical History HTN, GERD, hypothyroidism, gastritis, duodenitis, diverticulosis Past Surgical History Thyroidectomy, cholecystectomy, and Family History: Cardiovascular disease G8 MOTHER G8 FATHER Allergies: Coded Allergies: No Known Drug Allergy (Verified Allergy, Unknown, 07/17/21) Home Meds Reported Medications Pantoprazole Sodium Sesquihydr (Pantoprazole Sodium) 40 Mg Tab, 20 MG PO DAILY for GERD, TAB 10/04/24 Sucralfate (CARAFATE) 1 Gm Tab, 1 GM OR BID for GERD, TAB 10/04/24 Lactobacillus (PROBIOTIC) Cap, 1 OR DAILY, CAP 10/04/24 Cyanocobalamin (B12) 1,000 Mcg Cap, 1000 MCG PO DAILY, CAP 02/13/24 Folic Acid (Folic Acid) 1 Mg Tab, 1 MG PO DAILY, TAB 02/13/24 [place]-3 Fatty Acids (Fish Oil 1200 mg) 1 Cap Cap, 1 CAP PO DAILY, CAP 02/13/24 Losartan Potassium (Losartan Potassium) 100 Mg Tab, 100 MG PO DAILY, TAB 02/13/24 Cholecalciferol (D3) 2,000 Unit Tab, 2000 UNIT PO DAILY, TAB 10/14/22 Metoprolol Tartrate (Metoprolol Tartrate) 25 Mg Tab, 25 MG PO DAILY, TAB 10/14/22 Levothyroxine Sodium (Levothyroxine Sodium) 25 Mcg Tab, 50 MCG PO DAILY, TAB 10/14/22 Atorvastatin Calcium (Lipitor) 20 Mg Tab, 20 MG PO DAILY, TAB 10/14/22 Amlodipine Besylate (NORVASC TABLET) 5 Mg Tb, 10 MG PO DAILY, TAB 10/14/22 Current Medications Current Medications Medications (Trade) Dose Ordered Sig/Gilbert Route PRN Reason Start Time Stop Time Status Last Admin Atorvastatin Calcium (Lipitor) 20 mg HS PO 03/24/25 22:00 Sodium Chloride 1,000 ml @ 100 mls/hr Q10H IV 03/24/25 12:15 03/24/25 12:39 Review of Systems Patient seen and examined at the bedside. Patient reported mild improvement in her abdominal pain since admission but reported no nausea or vomiting for now. We will keep her on clear liquid diet and scheduled for colonoscopy dependent upon OR availability. Vital Signs Vital Signs Date Time Temp Pulse Resp B/P (MAP) Pulse Ox O2 Delivery O2 Flow Rate FiO2 03/25/25 09:31 132/55 03/25/25 09:00 97.7 64 17 95 97.7 03/24/25 20:00 Room Air* 0 21 Physical Exam Pt is lying on bed General Appearance: Alert, Oriented X3, Cooperative, Not in acute distress HEENT: Atraumatic, Mucous membranes moist/pink Respiratory: Clear to auscultation, Normal air movement, bilateral wheezing Cardiovascular: Regular rate, Normal S1, Normal S2, No murmurs Abdominal: Active bowel sounds, Soft, no distention, mild lower abd tenderness Extremities: no edema, Normal pulses, No tenderness/swelling Skin: No Significant rash, except past surgical scars Neuro: Normal speech, sensorimotor deficits none Psych/Mental Status: Mental status NL, Mood NL Nurse was there as sharperone during examination Labs/Diagnostic Data Labs Test 03/25/25 06:54 03/24/25 08:36 03/24/25 07:38 03/24/25 03:58 Range/Units White Blood Count 5.6 # 4.4-10.8 10^3/uL Red Blood Count 4.12 4.0-5.20 10^6/uL Hemoglobin 10.8 L 12.2-16.2 g/dL Hematocrit 33.1 L 36.0-46.0 % Mean Corpuscular Volume 80.2 80.0-100.0 fL Mean Corpuscular Hemoglobin 26.3 L 28.0-32.0 pg Mean Corpuscular Hemoglobin Concent 32.8 32.0-36.0 g/dL Red Cell Distribution Width 17.2 H 11.8-14.3 % Platelet Count 300 140-450 10^3/uL Mean Platelet Volume 9.1 6.9-10.8 fL Neutrophils (%) (Auto) 60.7 37.0-80.0 % Lymphocytes (%) (Auto) 29.5 10.0-50.0 % Monocytes (%) (Auto) 7.3 0.0-12.0 % Eosinophils (%) (Auto) 1.5 0.0-7.0 % Basophils (%) (Auto) 1.0 0.0-2.0 % Neutrophils # (Auto) 3.4 1.6-8.6 10 ^3/uL Lymphocytes # (Auto) 1.7 0.4-5.4 10 ^3/uL Monocytes # (Auto) 0.4 0-1.3 10 ^3/uL Eosinophils # (Auto) 0.1 0-0.8 10 ^3/uL Basophils # (Auto) 0.1 0-0.2 10 ^3/uL Nucleated Red Blood Cells 0.2 % Sodium Level 144 # 136-145 mmol/L Potassium Level 3.4 L 3.5-5.1 mmol/L Chloride Level 110 H 98-107 mmol/L Carbon Dioxide Level 22 20-31 mmol/L Anion Gap 12 5-15 Blood Urea Nitrogen 12 9-23 mg/dL Creatinine 0.88 0.550-1.02 mg/dL Glomerular Filtration Rate Calc 66 >90 mL/min BUN/Creatinine Ratio 13.6 10.0-20.0 Serum Glucose 98 74-106 mg/dL Calcium Level 9.6 8.7-10.4 mg/dL Total Bilirubin 0.4 0.2-1.0 mg/dL Aspartate Amino Transferase (AST) 17 13-40 U/L Alanine Aminotransferase (ALT) 13 7-40 U/L Alkaline Phosphatase 80 46-116 U/L Total Protein 6.5 5.7-8.2 g/dL Albumin 3.8 3.2-4.8 g/dL Lactic Acid Level 0.6 0.4-2.0 mmol/L Urine Color Light-yellow Yellow Urine Clarity Clear Clear Urine pH 6.5 5.0-9.0 Urine Specific [place] > 1.035 H 1.001-1.035 Urine Protein Trace H Negative Urine Ketones Negative Negative Urine Blood Negative Negative /uL Urine Nitrite Negative Negative Urine Bilirubin Negative Negative Urine Urobilinogen Normal Negative mg/dL Urine Leukocyte Esterase Negative Negative /uL Urine RBC <1 0 - 4 /hpf Urine Microscopic WBC < 1 0-5 /HPF Urine Squamous Epithelial Cells Few <5 /hpf Urine Bacteria None seen None Seen /hpf Urine Glucose Normal Normal mg/dL Hemoglobin A1c 5.7 <5.7 % A1C Troponin I High Sensitivity 8 </=34 ng/L Microbiology Date/Time Source Procedure Growth Status 03/24/25 08:36 Blood Blood Culture - Preliminary NO GROWTH AFTER 24 HOURS OF INCUBATION. Resulted 03/24/25 07:38 Voided Urine Urine Culture - Preliminary Resulted Assessment Intractable abdominal pain Rule out small-bowel obstruction Chronic GERD Gastroduodenitis Multiple hepatic lesions Diverticulosis without diverticulitis Plan/Recommendation Protonix 40 mg IV b.i.d. Carafate 1 g p.o. t.i.d. Zofran for nausea Clear liquid diet Colonoscopy depend upon OR availability ( likely in 48-72 hours) CT abdominal pelvis showed multiple hepatic lesions, multiple distended small bowel with air-fluid level concerning for small bowel obstruction Small bowel series showed normal transit time but delayed filling of colon and concerning for abnormalities in ascending colon and transverse colon Surgical consult appreciated Avoid aspirin, NSAIDs, caustic agents Thank you so much for the opportunity to consult on your patient. GI team will follow the patient Case an action plan discussed with Dr. Sasha Mcclelland. Complex care planning needed total 49 minutes of detailed discussion. Plan discussed with: Patient BHARATHCATHIE PEARCELIAT RESIDENT March 25, 2025 11:37
[2025-03-25] MEDS: SUCRALFATE 1 GM TAB PO SCH (14:51)
--- NOTE | 2025-03-25 16:50 | DVHPN2 ---
Subjective Passing stool now and NGT removed this morning by surgery Changes from previous H/P or p: No Changes Gastrointestinal: Nausea, Vomiting, Abdominal Pain Objective Vitals Vital Signs Date Time Temp Pulse Resp B/P (MAP) Pulse Ox O2 Delivery O2 Flow Rate FiO2 03/25/25 13:00 97.7 64 17 149/65 (93) 96 97.7 03/24/25 20:00 Room Air* 0 21 Intake/Output Intake and Output 03/25/25 07:00 Intake Total 550 ml Balance 550 ml Intake Oral 0 ml IV Total 550 ml # Voids 2 # Bowel Movements 6 General Appearance: Alert, Oriented X3 HEENT: Atraumatic, PERRLA Lungs: Clear to auscultation Abdomen: Normal bowel sounds Medications Current Medications Medications Dose Ordered Sig/Gilbert Route Start Time Stop Time Status Last Admin Dose Admin Acetaminophen/ Hydrocodone Bitart 1 tab Q4HP PRN PO 03/24/25 07:00 Ondansetron HCl 4 mg Q4HP PRN IV 03/24/25 07:00 Acetaminophen 650 mg Q6HP PRN PO 03/24/25 07:00 Morphine Sulfate 2 mg Q4HPRN PRN IV 03/24/25 07:00 Piperacillin Sod/ Tazobactam Sod 100 ml @ 25 mls/hr Q8HR IV 03/24/25 07:00 03/25/25 14:51 25 MLS/HR Amlodipine Besylate 10 mg DAILY PO 03/24/25 10:00 Atorvastatin Calcium 20 mg HS PO 03/24/25 22:00 Levothyroxine Sodium 50 mcg QAM PO 03/24/25 08:48 Metoprolol Tartrate 25 mg DAILY PO 03/24/25 10:00 Hold Cholecalciferol 2,000 unit DAILY PO 03/24/25 10:00 Cyanocobalamin 1,000 mcg DAILY PO 03/24/25 10:00 Folic Acid 1 mg DAILY PO 03/24/25 10:00 Losartan Potassium 100 mg DAILY PO 03/24/25 10:00 Patient Own Medication 1 cap DAILY PO 03/24/25 10:00 Hydralazine HCl 10 mg Q6HP PRN IV 03/24/25 10:00 Sodium Chloride 1,000 ml @ 100 mls/hr Q10H IV 03/24/25 12:15 03/24/25 12:39 100 MLS/HR Pantoprazole Sodium 40 mg BID IV 03/25/25 22:00 Sucralfate 1 gm TID PO 03/25/25 14:00 03/25/25 14:51 1 GM Laboratory Results Laboratory Tests 03/25/25 06:54 Chemistry Test 03/25/25 06:54 Albumin 3.8 g/dL (3.2-4.8) Calcium Level 9.6 mg/dL (8.7-10.4) Total Protein 6.5 g/dL (5.7-8.2) LFT Test 03/25/25 06:54 Alanine Aminotransferase (ALT) 13 U/L (7-40) Alkaline Phosphatase 80 U/L (46-116) Aspartate Amino Transferase (AST) 17 U/L (13-40) Total Bilirubin 0.4 mg/dL (0.2-1.0) Urinalysis Test 03/24/25 07:38 Urine Color Light-yellow (Yellow) Urine Clarity Clear (Clear) Urine pH 6.5 (5.0-9.0) Urine Specific [place] > 1.035 (1.001-1.035) Urine Protein Trace (Negative) H Urine Ketones Negative (Negative) Urine Blood Negative /uL (Negative) Urine Nitrite Negative (Negative) Urine Bilirubin Negative (Negative) Urine Urobilinogen Normal mg/dL (Negative) Urine Leukocyte Esterase Negative /uL (Negative) Urine RBC <1 /hpf (0 - 4) Urine Microscopic WBC < 1 /HPF (0-5) Urine Squamous Epithelial Cells Few /hpf (<5) Urine Bacteria None seen /hpf (None Seen) Urine Glucose Normal mg/dL (Normal) Microbiology Microbiology Date/Time Source Procedure Growth Status 03/24/25 08:36 Blood Blood Culture - Preliminary NO GROWTH AFTER 24 HOURS OF INCUBATION. Resulted 03/24/25 07:38 Voided Urine Urine Culture - Preliminary Resulted Assessment/Plan Assessment/Plan Intractable abdominal pain probable small bowel obstruction Leukocytosis rule out sepsis versus peritonitis Hepatic lesions rule out mass Hypokalemia Bilateral simple renal cysts Colonic diverticulosis History of hypertension History of GERD History of prediabetes History of thyroid disease with thyroidectomy History of EGD History of cholecystectomy History of ADAT NGT removed by surgery GI following and recommended scope Plan discussed with: Patient Date of Service: March 25, 2025 Billing Provider: YAMILETH GALE MD Common Visit Codes: [id number] INP/OBS CARE(HIGH) YAMILETH GALE MD March 25, 2025 16:50
[2025-03-25] MEDS: PANTOPRAZOLE 40 MG/10 ML VIAL INJ IV SCH (21:32)
[2025-03-26] VITALS (8 sets, daily range): BP systolic 114–154; BP diastolic 40–75; PULSE 58–74; RESP 15–20; TEMP 97.7–98.3; O2SAT 95–98
[2025-03-26] MEDS: hydrALAZINE HCL 20 MG/ML VL IV PRN (05:06)
--- NOTE | 2025-03-26 09:25 | DVHPN2 ---
Subjective Date Seen: March 26, 2025 Post op day Post op day: 0 Patient reports: No new complaints Nursing reports: No new complaints General: Normal HNT: Normal Cardiovascular: Normal Respiratory: Normal Gastrointestinal: Normal Genitourinary: Normal Musculoskeletal: Normal Neurological: Normal Objective Vitals Vital Sign Date Time Temp Pulse Resp B/P (MAP) Pulse Ox O2 Delivery O2 Flow Rate FiO2 03/26/25 08:12 20 Room Air* 0 21 03/26/25 05:06 164/58 03/26/25 01:00 97.7 60 95 97.7 Total Intake and Output 03/25/25 03/25/25 03/26/25 15:00 23:00 07:00 Intake Total 576 ml 1290 ml 500 ml Balance 576 ml 1290 ml 500 ml Medications Current Medications Medications Dose Ordered Sig/Gilbert Route Start Time Stop Time Status Last Admin Dose Admin Acetaminophen/ Hydrocodone Bitart 1 tab Q4HP PRN PO 03/24/25 07:00 Ondansetron HCl 4 mg Q4HP PRN IV 03/24/25 07:00 Acetaminophen 650 mg Q6HP PRN PO 03/24/25 07:00 Morphine Sulfate 2 mg Q4HPRN PRN IV 03/24/25 07:00 Piperacillin Sod/ Tazobactam Sod 100 ml @ 25 mls/hr Q8HR IV 03/24/25 07:00 03/26/25 05:41 25 MLS/HR Amlodipine Besylate 10 mg DAILY PO 03/24/25 10:00 Atorvastatin Calcium 20 mg HS PO 03/24/25 22:00 03/25/25 21:32 20 MG Levothyroxine Sodium 50 mcg QAM PO 03/24/25 08:48 03/26/25 06:17 50 MCG Metoprolol Tartrate 25 mg DAILY PO 03/24/25 10:00 Hold Cholecalciferol 2,000 unit DAILY PO 03/24/25 10:00 Cyanocobalamin 1,000 mcg DAILY PO 03/24/25 10:00 Folic Acid 1 mg DAILY PO 03/24/25 10:00 Losartan Potassium 100 mg DAILY PO 03/24/25 10:00 Patient Own Medication 1 cap DAILY PO 03/24/25 10:00 Hydralazine HCl 10 mg Q6HP PRN IV 03/24/25 10:00 03/26/25 05:06 10 MG Sodium Chloride 1,000 ml @ 100 mls/hr Q10H IV 03/24/25 12:15 03/24/25 12:39 100 MLS/HR Pantoprazole Sodium 40 mg BID IV 03/25/25 22:00 03/25/25 21:32 40 MG Sucralfate 1 gm TID PO 03/25/25 14:00 03/26/25 05:41 1 GM General: Normal, Well developed Head/Eyes: Normal ENT: Normal Neck: Normal Lungs: Normal Cardiovascular: Normal, Regular rate and rhythm Abdominal: Normal, Soft Musculoskeletal: Normal Extremities: Normal Skin: Normal Labs and Microbiology Laboratory Tests 03/25/25 06:54 Test 03/25/25 06:54 Range/Units Serum Glucose 98 74-106 mg/dL Ass/Plan Problem List 03/25/25 gastrografin small bowel series essentially normal except abnormality at level of ascending colon. she had several bowel movements and is passing flatus, I have removed her NGT, she may have po liquids, requested GI consult for colonoscopy., abdomen is non tender, non distended Assessment/Plan patient was admitted for sbo patient abdomen soft , non distended, non tender tolerating diet, passing gas, bm, denies nausea and vomiting small bowel obstruction has resolved Plan: No surgical intervention , please recall if needed Prognosis: Excellent Plan discussed with patient, Dr. Zuniga Visit Coding Surgery Date of Service if different f: March 26, 2025 Billing Provider: NAVDEEP ZUNIGA MD Surgery Visit Codes: [id number] INP/OBS CARE(HIGH) MANUELA BAUGH NP March 26, 2025 09:25
[2025-03-26 13:08] LABS: AFP Serum Tumor Marker 2.1 ng/mL (0.0-8.7); Cancer Antigen (CA) 125 14.6 U/mL (0.0-38.1)
--- NOTE | 2025-03-26 17:08 | DVHPN2 ---
Subjective feeling well and tolerating diet Changes from previous H/P or p: No Changes Gastrointestinal: Nausea, Vomiting, Abdominal Pain Objective Vitals Vital Signs Date Time Temp Pulse Resp B/P (MAP) Pulse Ox O2 Delivery O2 Flow Rate FiO2 03/26/25 12:05 97.9 74 16 146/58 (87) 98 97.9 03/26/25 08:12 Room Air* 0 21 Intake/Output Intake and Output 03/26/25 07:00 Intake Total 2366 ml Balance 2366 ml Intake Oral 1766 ml IV Total 600 ml # Voids 3 # Bowel Movements 3 General Appearance: Alert, Oriented X3 HEENT: Atraumatic, PERRLA Lungs: Clear to auscultation Abdomen: Normal bowel sounds Medications Current Medications Medications Dose Ordered Sig/Gilbert Route Start Time Stop Time Status Last Admin Dose Admin Acetaminophen/ Hydrocodone Bitart 1 tab Q4HP PRN PO 03/24/25 07:00 Ondansetron HCl 4 mg Q4HP PRN IV 03/24/25 07:00 Acetaminophen 650 mg Q6HP PRN PO 03/24/25 07:00 Morphine Sulfate 2 mg Q4HPRN PRN IV 03/24/25 07:00 Piperacillin Sod/ Tazobactam Sod 100 ml @ 25 mls/hr Q8HR IV 03/24/25 07:00 03/26/25 13:48 25 MLS/HR Amlodipine Besylate 10 mg DAILY PO 03/24/25 10:00 03/26/25 09:28 10 MG Atorvastatin Calcium 20 mg HS PO 03/24/25 22:00 03/25/25 21:32 20 MG Levothyroxine Sodium 50 mcg QAM PO 03/24/25 08:48 03/26/25 06:17 50 MCG Metoprolol Tartrate 25 mg DAILY PO 03/24/25 10:00 Hold Cholecalciferol 2,000 unit DAILY PO 03/24/25 10:00 03/26/25 09:27 2,000 UNIT Cyanocobalamin 1,000 mcg DAILY PO 03/24/25 10:00 03/26/25 09:43 1,000 MCG Folic Acid 1 mg DAILY PO 03/24/25 10:00 03/26/25 09:28 1 MG Losartan Potassium 100 mg DAILY PO 03/24/25 10:00 03/26/25 09:28 100 MG Patient Own Medication 1 cap DAILY PO 03/24/25 10:00 03/26/25 09:38 1 CAP Hydralazine HCl 10 mg Q6HP PRN IV 03/24/25 10:00 03/26/25 05:06 10 MG Sodium Chloride 1,000 ml @ 100 mls/hr Q10H IV 03/24/25 12:15 03/24/25 12:39 100 MLS/HR Pantoprazole Sodium 40 mg BID IV 03/25/25 22:00 03/26/25 09:29 40 MG Sucralfate 1 gm TID PO 03/25/25 14:00 03/26/25 13:48 1 GM Laboratory Results Laboratory Tests 03/25/25 06:54 Urinalysis Test 03/24/25 07:38 Urine Color Light-yellow (Yellow) Urine Clarity Clear (Clear) Urine pH 6.5 (5.0-9.0) Urine Specific [place] > 1.035 (1.001-1.035) Urine Protein Trace (Negative) H Urine Ketones Negative (Negative) Urine Blood Negative /uL (Negative) Urine Nitrite Negative (Negative) Urine Bilirubin Negative (Negative) Urine Urobilinogen Normal mg/dL (Negative) Urine Leukocyte Esterase Negative /uL (Negative) Urine RBC <1 /hpf (0 - 4) Urine Microscopic WBC < 1 /HPF (0-5) Urine Squamous Epithelial Cells Few /hpf (<5) Urine Bacteria None seen /hpf (None Seen) Urine Glucose Normal mg/dL (Normal) Microbiology Microbiology Date/Time Source Procedure Growth Status 03/24/25 08:36 Blood Blood Culture - Preliminary NO GROWTH AFTER 48 HOURS OF INCUBATION. Resulted 03/24/25 07:38 Voided Urine Urine Culture - Final Complete Assessment/Plan Assessment/Plan Intractable abdominal pain probable small bowel obstruction Leukocytosis rule out sepsis versus peritonitis Hepatic lesions rule out mass Hypokalemia Bilateral simple renal cysts Colonic diverticulosis History of hypertension History of GERD History of prediabetes History of thyroid disease with thyroidectomy History of EGD History of cholecystectomy History of ADAT NGT removed by surgery GI following and recommended scope on friday Plan discussed with: Patient Date of Service: March 26, 2025 Billing Provider: YAMILETH GALE MD Common Visit Codes: [id number] INP/OBS CARE(HIGH) YAMILETH GALE MD March 26, 2025 17:08
[2025-03-27] VITALS (8 sets, daily range): BP systolic 130–158; BP diastolic 40–65; PULSE 59–66; RESP 14–18; TEMP 97.8–98.4; O2SAT 95–98
--- NOTE | 2025-03-27 07:32 | DVH ---
CLINICAL HISTORY: Rule out hepatic mass. No other clinical information provided. Indication for prio r CT was abdominal pain. Multiple hepatic lesions described on prior CT report. TECHNIQUE: Multi sequence multi planar MRI images of the abdomen were obtained prior to and after th e uneventful administration of 15 mL Clariscan contrast. COMPARISON: CT dated 03/24/2025. FINDINGS: Motion artifact limits evaluation for subtle findings. Again seen are numerous lesions thr oughout the liver, which demonstrate rim enhancement on multiphase postcontrast images. The largest lesion measures up to 4.4 cm in greatest dimension in the anterior right hepatic lobe. Findings are c onsistent with hepatic metastatic disease. The spleen and adrenal glands are unremarkable. Moderately atrophic pancreas. Multiple nonenhancing cysts are seen in the kidneys, including some complex, prot einaceous cysts. The gallbladder is surgically absent. Common bile duct is mildly prominent, measurin g up to 0.9 cm in diameter, which may be seen after cholecystectomy due to reservoir effect. There is no abdominal aortic aneurysm. No other acute or suspicious findings are seen. IMPRESSION: 1. Numerous lesions throughout the liver, most consistent with metastatic disease. 2. Bilateral renal cysts, including some proteinaceous cysts. 3. Motion artifact limits evaluation for subtle findings.
--- NOTE | 2025-03-27 15:45 | DVHPN2 ---
Subjective feeling well and tolerating diet Changes from previous H/P or p: No Changes Gastrointestinal: Nausea, Vomiting, Abdominal Pain Objective Vitals Vital Signs Date Time Temp Pulse Resp B/P (MAP) Pulse Ox O2 Delivery O2 Flow Rate FiO2 03/27/25 13:37 98.4 59 16 151/65 (93) 98 98.4 03/27/25 08:00 Room Air* 0 21 Intake/Output Intake and Output 03/27/25 07:00 Intake Total 2112 ml Balance 2112 ml Intake Oral 2012 ml IV Total 100 ml # Voids 6 # Bowel Movements 3 General Appearance: Alert, Oriented X3 HEENT: Atraumatic, PERRLA Lungs: Clear to auscultation Abdomen: Normal bowel sounds Medications Current Medications Medications Dose Ordered Sig/Gilbert Route Start Time Stop Time Status Last Admin Dose Admin Acetaminophen/ Hydrocodone Bitart 1 tab Q4HP PRN PO 03/24/25 07:00 Ondansetron HCl 4 mg Q4HP PRN IV 03/24/25 07:00 Acetaminophen 650 mg Q6HP PRN PO 03/24/25 07:00 Morphine Sulfate 2 mg Q4HPRN PRN IV 03/24/25 07:00 Piperacillin Sod/ Tazobactam Sod 100 ml @ 25 mls/hr Q8HR IV 03/24/25 07:00 03/27/25 06:15 25 MLS/HR Amlodipine Besylate 10 mg DAILY PO 03/24/25 10:00 03/26/25 09:28 10 MG Atorvastatin Calcium 20 mg HS PO 03/24/25 22:00 03/26/25 21:53 20 MG Levothyroxine Sodium 50 mcg QAM PO 03/24/25 08:48 03/27/25 06:45 50 MCG Metoprolol Tartrate 25 mg DAILY PO 03/24/25 10:00 Hold Cholecalciferol 2,000 unit DAILY PO 03/24/25 10:00 03/26/25 09:27 2,000 UNIT Cyanocobalamin 1,000 mcg DAILY PO 03/24/25 10:00 03/26/25 09:43 1,000 MCG Folic Acid 1 mg DAILY PO 03/24/25 10:00 03/26/25 09:28 1 MG Losartan Potassium 100 mg DAILY PO 03/24/25 10:00 03/26/25 09:28 100 MG Patient Own Medication 1 cap DAILY PO 03/24/25 10:00 03/26/25 09:38 1 CAP Hydralazine HCl 10 mg Q6HP PRN IV 03/24/25 10:00 03/26/25 05:06 10 MG Sodium Chloride 1,000 ml @ 100 mls/hr Q10H IV 03/24/25 12:15 03/27/25 10:35 100 MLS/HR Pantoprazole Sodium 40 mg BID IV 03/25/25 22:00 03/26/25 21:53 40 MG Sucralfate 1 gm TID PO 03/25/25 14:00 03/27/25 06:16 1 GM Laboratory Results Laboratory Tests 03/25/25 06:54 Urinalysis Test 03/24/25 07:38 Urine Color Light-yellow (Yellow) Urine Clarity Clear (Clear) Urine pH 6.5 (5.0-9.0) Urine Specific [place] > 1.035 (1.001-1.035) Urine Protein Trace (Negative) H Urine Ketones Negative (Negative) Urine Blood Negative /uL (Negative) Urine Nitrite Negative (Negative) Urine Bilirubin Negative (Negative) Urine Urobilinogen Normal mg/dL (Negative) Urine Leukocyte Esterase Negative /uL (Negative) Urine RBC <1 /hpf (0 - 4) Urine Microscopic WBC < 1 /HPF (0-5) Urine Squamous Epithelial Cells Few /hpf (<5) Urine Bacteria None seen /hpf (None Seen) Urine Glucose Normal mg/dL (Normal) Microbiology Microbiology Date/Time Source Procedure Growth Status 03/24/25 08:36 Blood Blood Culture - Preliminary NO GROWTH AFTER 72 HOURS OF INCUBATION. 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
[2025-03-27] MEDS ORDERED: GADOTERATE MEG 10 MMOL/20ml INJ (0.5MMOL/ml) IV ONE (17:01)
[2025-03-27] MEDS: GOLYTELY 4L KIT PO ONE (17:03)
--- NOTE | 2025-03-27 21:26 | DVHPN2 ---
Progress Note - Dictate Date Seen: March 27, 2025 Medical Necessity Reason Pt with a Central, PICC or Fol: No Subjective Pt is undergoingBowel prep for a colonoscopy MRI of the abdomen suggestive of metastatic liver disease No clear-cut mass seen in the ascending colon ; tumor markers negative or normal Last colonoscopy was in September of 2022 which showed mild ileitis diverticular disease and no mass at that time vital signs Vital Sign Date Time Temp Pulse Resp B/P (MAP) Pulse Ox O2 Delivery O2 Flow Rate FiO2 03/27/25 17:25 97.8 63 18 134/65 (88) 96 97.8 03/27/25 08:00 Room Air* 0 21 Total Intake and Output 03/26/25 03/26/25 03/27/25 15:00 23:00 07:00 Intake Total 932 ml 900 ml 280 ml Balance 932 ml 900 ml 280 ml medications Current Medications Medications Dose Ordered Sig/Gilbert Route Start Time Stop Time Status Last Admin Dose Admin Acetaminophen/ Hydrocodone Bitart 1 tab Q4HP PRN PO 03/24/25 07:00 Ondansetron HCl 4 mg Q4HP PRN IV 03/24/25 07:00 Acetaminophen 650 mg Q6HP PRN PO 03/24/25 07:00 Morphine Sulfate 2 mg Q4HPRN PRN IV 03/24/25 07:00 Piperacillin Sod/ Tazobactam Sod 100 ml @ 25 mls/hr Q8HR IV 03/24/25 07:00 03/27/25 17:03 25 MLS/HR Amlodipine Besylate 10 mg DAILY PO 03/24/25 10:00 03/26/25 09:28 10 MG Atorvastatin Calcium 20 mg HS PO 03/24/25 22:00 03/26/25 21:53 20 MG Levothyroxine Sodium 50 mcg QAM PO 03/24/25 08:48 03/27/25 06:45 50 MCG Metoprolol Tartrate 25 mg DAILY PO 03/24/25 10:00 Hold Cholecalciferol 2,000 unit DAILY PO 03/24/25 10:00 03/26/25 09:27 2,000 UNIT Cyanocobalamin 1,000 mcg DAILY PO 03/24/25 10:00 03/26/25 09:43 1,000 MCG Folic Acid 1 mg DAILY PO 03/24/25 10:00 03/26/25 09:28 1 MG Losartan Potassium 100 mg DAILY PO 03/24/25 10:00 03/26/25 09:28 100 MG Patient Own Medication 1 cap DAILY PO 03/24/25 10:00 03/26/25 09:38 1 CAP Hydralazine HCl 10 mg Q6HP PRN IV 03/24/25 10:00 03/26/25 05:06 10 MG Sodium Chloride 1,000 ml @ 100 mls/hr Q10H IV 03/24/25 12:15 03/27/25 10:35 100 MLS/HR Pantoprazole Sodium 40 mg BID IV 03/25/25 22:00 03/26/25 21:53 40 MG Sucralfate 1 gm TID PO 03/25/25 14:00 03/27/25 14:00 1 GM objective General Appearance: Alert, Oriented X3, Cooperative, Not in acute distress HEENT: Atraumatic, Mucous membranes moist/pink Respiratory: Clear to auscultation, Normal air movement, bilateral wheezing Cardiovascular: Regular rate, Normal S1, Normal S2, No murmurs Abdominal: Active bowel sounds, Soft, no distention, mild lower abd tenderness Extremities: no edema, Normal pulses, No tenderness/swelling Skin: No Significant rash, except past surgical scars Neuro: Normal speech, sensorimotor deficits none Psych/Mental Status: Mental status NL, Mood NL Nurse was there as sharperone during examination laboratory and microbiology Laboratory Tests 03/25/25 06:54 Test 03/25/25 06:54 Range/Units Serum Glucose 98 74-106 mg/dL Problems(with codes): (1) Abnormal finding on GI tract imaging (2) Projectile vomiting with nausea (3) Intractable abdominal pain Prognosis Plan Complete bowel prep Tentatively scheduled for colonoscopy tomorrow If that is nondiagnostic then the patient may be considered for a CT-guided biopsy of the liver mass Dietary Evaluation Review Comments: 1. Recommend further diet progression to Regular diet for least-restrictive diet possible 2. Continue bowel clean-out 3. On folic acid, B12 supplementation, consider rechecking labs Expected Outcomes/Goals: Diet progression, adequate nutritional intake. Plan discussed with: Patient QUITA VALENTE MD March 27, 2025 21:26
[2025-03-28] VITALS (10 sets, daily range): BP systolic 129–161; BP diastolic 63–83; PULSE 61–96; RESP 16–20; TEMP 97.5–98.7; O2SAT 96–100
[2025-03-28] MEDS: MAGNESIUM CITRATE SOLUTION 300 ML BTL PO ONE (05:34)
[2025-03-28] MEDS: GOLYTELY 4L KIT PO ONE (05:36)
[2025-03-28 05:45] LABS: Hemoglobin 11.9 g/dL (12.2-16.2); Monocytes # (auto) 0.4 10 ^3/uL (0-1.3); Red Cell Distribution Width 16.9 % (11.8-14.3)
[2025-03-28 05:47] LABS: Basophils # (auto) 0.1 10 ^3/uL (0-0.2); Basophils % (auto) 1.2 % (0.0-2.0); Eosinophils # (auto) 0.1 10 ^3/uL (0-0.8); Eosinophils % (auto) 1.9 % (0.0-7.0); Hematocrit 35.6 % (36.0-46.0); Lymphocytes # (auto) 2.9 10 ^3/uL (0.4-5.4); Mean Corpuscular Hemoglobin 26.4 pg (28.0-32.0); Mean Corpuscular Hgb Conc. 33.4 g/dL (32.0-36.0); Monocytes % (auto) 6.1 % (0.0-12.0); Neutrophils # (auto) 3.6 10 ^3/uL (1.6-8.6); Neutrophils % (auto) 49.8 % (37.0-80.0); Platelet Count (auto) 290 10^3/uL (140-450); White Blood Cell 7.1 10^3/uL (4.4-10.8)
[2025-03-28 06:01] LABS: Alanine Aminotransferase 12 U/L (7-40); Alkaline Phosphatase 77 U/L (46-116); Anion Gap 12 (5-15); Aspartate Aminotransferase 19 U/L (13-40); BUN/Creatinine Ratio 6.2 (10.0-20.0); Calcium 9.4 mg/dL (8.7-10.4); Carbon Dioxide 22 mmol/L (20-31); Glucose 89 mg/dL (74-106); Total Protein 6.7 g/dL (5.7-8.2)
[2025-03-28 06:02] LABS: Bilirubin, Total 0.4 mg/dL (0.2-1.0)
[2025-03-28 06:04] LABS: Blood Urea Nitrogen 6 mg/dL (9-23); Chloride 111 mmol/L (98-107); Potassium 3.4 mmol/L (3.5-5.1); Sodium 145 mmol/L (136-145)
[2025-03-28 06:06] LABS: INR 1.11 (0.9-1.15); Partial Thromboplastin Time 28.6 SEC (24.5-34.5); Prothrombin Time 11.6 sec (9.3-11.8)
[2025-03-28] MEDS ORDERED: MIDAZOLAM HCL 2MG/2ML 2ml VIAL (1mg/ml) ONE (13:38)
[2025-03-28] MEDS ORDERED: fentaNYL CITRATE 100 MCG/2 ML VL ONE (13:38)
[2025-03-28] MEDS ORDERED: DexAMETHasone SOD PHOS 10MG/1ML VIAL INJ ONE (13:46)
--- NOTE | 2025-03-28 14:38 | DVHOP2 ---
Operative Report DATE OF OPERATION: 03/28/25 PROCEDURE: Incomplete Colonoscopy due to sigmoid diverticular disease and sigmoid stricture. PREOPERATIVE INDICATION: The patient is a 79 -year-old female undergoing colonoscopy for evaluation of partial bowel obstruction rule out colonic lesion POSTOPERATIVE DIAGNOSES: 1. Patient had [id number] sigmoid diverticular disease with sigmoid tortuosity fixation spasm beyond which the colonoscope could not be advanced despite repositioning patient and multiple attempts 2. Trace to 1+ internal hemorrhoids PROCEDURE PERFORMED BY: Quita Mcclelland M.D. SCOPE: Olympus videocolonoscope. ASA CLASS: 3. PREOPERATIVE MEDICATIONS: Dr. Grecia Trejo PROCEDURE IN DETAIL: After obtaining an informed consent, the patient was placed on left lateral decubitus position. She was then sedated with the above medications. A rectal examination was performed that was normal. The colonoscope was then passed through the anus into the rectosigmoid . At about 25-30 cm above the anal verge there was sharp sigmoid tortuosity severe diverticular disease and angulation Patient also had sigmoid fixation and spasm and I was not able to advance my colonoscope beyond this area despite repositioning patient's and making multiple attempts The colonoscope was then withdrawn. Patient had trace to 1+ internal hemorrhoids and no fresh or old blood was seen in the colon The patient tolerated the procedure well without difficulty. WITHDRAWAL TIME: Not applicable QUALITY OF THE PREP: [place] Bowel Prep score: Not applicable COMPLICATIONS : None SPECIMENS: None DISPOSITION: Transfer back to the floor Stable PLAN: 1. Resume soft mechanical diet 2. Request IR consult to get image guided biopsy of the liver lesions and decide on further management pending the above 3. Her tumor markers are negative and a previous colonoscopy about two and half years ago was negative for a colonic mass 4. Likely her current symptoms of partial obstruction could be related to worsening of her diverticular disease or diverticulitis QUITA MCCLELLAND MD March 28, 2025 14:38
--- NOTE | 2025-03-28 16:37 | DVHPN2 ---
Subjective Seen and examined at bedside, colonoscopy attempted but patient had severe spasms. Will request IR to do liver biopsy. Changes from previous H/P or p: No Changes Gastrointestinal: Nausea, Vomiting, Abdominal Pain Objective Vitals Vital Signs Date Time Temp Pulse Resp B/P (MAP) Pulse Ox O2 Delivery O2 Flow Rate FiO2 03/28/25 14:50 82 15 139/46 (77) 96 03/28/25 14:35 Room Air 97 03/28/25 14:20 7.0 03/28/25 14:20 97.9 97.9 Intake/Output Intake and Output 03/28/25 07:00 Intake Total 3100 ml Balance 3100 ml Intake Oral 2900 ml IV Total 200 ml # Voids 14 # Bowel Movements 1 General Appearance: Alert, Oriented X3 HEENT: Atraumatic, PERRLA Lungs: Clear to auscultation Abdomen: Normal bowel sounds Medications Current Medications Medications Dose Ordered Sig/Gilbert Route Start Time Stop Time Status Last Admin Dose Admin Acetaminophen/ Hydrocodone Bitart 1 tab Q4HP PRN PO 03/24/25 07:00 Ondansetron HCl 4 mg Q4HP PRN IV 03/24/25 07:00 Acetaminophen 650 mg Q6HP PRN PO 03/24/25 07:00 Morphine Sulfate 2 mg Q4HPRN PRN IV 03/24/25 07:00 Piperacillin Sod/ Tazobactam Sod 100 ml @ 25 mls/hr Q8HR IV 03/24/25 07:00 03/28/25 15:29 25 MLS/HR Amlodipine Besylate 10 mg DAILY PO 03/24/25 10:00 03/28/25 10:32 10 MG Atorvastatin Calcium 20 mg HS PO 03/24/25 22:00 03/27/25 22:28 20 MG Levothyroxine Sodium 50 mcg QAM PO 03/24/25 08:48 03/28/25 05:34 50 MCG Metoprolol Tartrate 25 mg DAILY PO 03/24/25 10:00 Hold Cholecalciferol 2,000 unit DAILY PO 03/24/25 10:00 03/28/25 10:31 2,000 UNIT Cyanocobalamin 1,000 mcg DAILY PO 03/24/25 10:00 03/28/25 10:34 1,000 MCG Folic Acid 1 mg DAILY PO 03/24/25 10:00 03/28/25 10:31 1 MG Losartan Potassium 100 mg DAILY PO 03/24/25 10:00 03/28/25 10:31 100 MG Patient Own Medication 1 cap DAILY PO 03/24/25 10:00 03/26/25 09:38 1 CAP Hydralazine HCl 10 mg Q6HP PRN IV 03/24/25 10:00 03/26/25 05:06 10 MG Sodium Chloride 1,000 ml @ 100 mls/hr Q10H IV 03/24/25 12:15 03/27/25 10:35 100 MLS/HR Pantoprazole Sodium 40 mg BID IV 03/25/25 22:00 03/28/25 10:34 40 MG Sucralfate 1 gm TID PO 03/25/25 14:00 03/28/25 05:34 1 GM Laboratory Results Laboratory Tests 03/28/25 05:13 Chemistry Test 03/28/25 05:13 Albumin 4.0 g/dL (3.2-4.8) Calcium Level 9.4 mg/dL (8.7-10.4) Total Protein 6.7 g/dL (5.7-8.2) Coagulation Test 03/28/25 05:13 Prothrombin Time 11.6 sec (9.3-11.8) Prothrombin Time INR 1.11 (0.9-1.15) Activated Partial Thromboplast Time 28.6 SEC (24.5-34.5) LFT Test 03/28/25 05:13 Alanine Aminotransferase (ALT) 12 U/L (7-40) Alkaline Phosphatase 77 U/L (46-116) Aspartate Amino Transferase (AST) 19 U/L (13-40) Total Bilirubin 0.4 mg/dL (0.2-1.0) Urinalysis Test 03/24/25 07:38 Urine Color Light-yellow (Yellow) Urine Clarity Clear (Clear) Urine pH 6.5 (5.0-9.0) Urine Specific [place] > 1.035 (1.001-1.035) Urine Protein Trace (Negative) H Urine Ketones Negative (Negative) Urine Blood Negative /uL (Negative) Urine Nitrite Negative (Negative) Urine Bilirubin Negative (Negative) Urine Urobilinogen Normal mg/dL (Negative) Urine Leukocyte Esterase Negative /uL (Negative) Urine RBC <1 /hpf (0 - 4) Urine Microscopic WBC < 1 /HPF (0-5) Urine Squamous Epithelial Cells Few /hpf (<5) Urine Bacteria None seen /hpf (None Seen) Urine Glucose Normal mg/dL (Normal) Microbiology Microbiology Date/Time Source Procedure Growth Status 03/24/25 08:36 Blood Blood Culture - Preliminary NO GROWTH AFTER 72 HOURS OF INCUBATION. Resulted 03/24/25 07:38 Voided Urine Urine Culture - Final Complete Assessment/Plan Assessment/Plan # Liver Malignancy- Will get IR Liver Biopsy # Thyroid Mass- Will get US thyroid # Bowel Obstruction ruled out, colonic spasm Plan discussed with: Patient My Orders Orders - JULIO C DYE MD Procedure Category Date Status Time Pantoprazole Tablet PHA 03/28/25 Transmitted (Protonix Tablet) 17:00 Basic Metabolic Panel LAB 03/29/25 Verified 04:00 Complete Blood Count LAB 03/29/25 Verified 04:00 Magnesium LAB 03/29/25 Verified 04:00 Date of Service: March 28, 2025 Billing Provider: JULIO C DYE MD Common Visit Codes: [id number] INP/OBS CARE(HIGH) JULIO C DYE MD March 28, 2025 16:37
[2025-03-28] MEDS: PANTOPRAZOLE 40 MG TAB PO SCH (17:07)
--- NOTE | 2025-03-28 19:56 | DVH ---
ULTRASOUND SOFT TISSUE HEAD AND NECK CLINICAL INDICATION: Thyroid Mass TECHNIQUE: Multiple real time sonographic images of the thyroid were obtained. COMPARISON: Prior exam dated none FINDINGS: RIGHT LOBE OF THE THYROID: Measures SURGICALLY REMOVED . LEFT LOBE OF THE THYROID: Measures approximately 4.4 x 2.5 x 2.5 cm. Homogeneous parenchymal texture 3 nodules left lobe of the thyroid. Upper pole complex nodule measures 6 x 4 x 5 mm. In pole non nodule measures 0.7 x 0.5 x 0.6 cm solid, TI-RADS 3 Lower pole nodule is anechoic and measures 6 x 5 x 6 mm. TI-RADS 1 ISTHMUS: 0.6 CM measures No nodule seen. IMPRESSION: 1. Right lobe of the thyroid has been removed. 2. 3 small nodules left lobe of the thyroid recommend follow-up in 6-12 months. [employer] TI-RADS Categories and Recommendations (2017): TR1: 0 points, Benign, No FNA TR2: 2 points, Not suspicious, No FNA TR3: 3 points, Mildly suspicious, FNA if > or = 2.5 cm, Follow if > or = 1.5 cm TR4: 4-6 points, Moderately Suspicious, FNA if > or = 1.5 cm, Follow if > or = 1.0 cm TR5: 7+ points, Highly Suspicious, FNA if > or = 1.0 cm, Follow if > or = 0.5 cm Follow-up ultrasound guidelines: TR5: yearly for 5 years, if no growth or change in TI-RADS level TR4: at 1, 2, 3 and 5 years, if no growth or change in TI-RADS level TR3: at 1, 3 and 5 years, if no growth or change in TI-RADS level If increased but below threshold for FNA, repeat in one year. Source: ACR Thyroid Imaging, Reporting and Data System (TI-RADS): White Paper of the A[employer] TI-RADS Committee. Josesito et al., J Am Cyndy Radiol 2017;14:587-595.
[2025-03-29] VITALS (9 sets, daily range): BP systolic 130–159; BP diastolic 37–90; PULSE 57–78; RESP 16–18; TEMP 97.7–98.6; O2SAT 95–99
[2025-03-29] MEDS: fentaNYL CITRATE 100 MCG/2 ML VL IV ONE (07:15)
[2025-03-29] MEDS: MIDAZOLAM HCL 2MG/2ML 2ml VIAL (1mg/ml) IV ONE (07:15)
[2025-03-29 07:18] LABS: Potassium 3.6 mmol/L (3.5-5.1); Sodium 142 mmol/L (136-145)
[2025-03-29 07:19] LABS: Anion Gap 12 (5-15)
[2025-03-29 07:24] LABS: Glucose 106 mg/dL (74-106)
[2025-03-29 07:25] LABS: BUN/Creatinine Ratio 6.6 (10.0-20.0); Magnesium 1.9 mg/dL (1.6-2.6)
[2025-03-29 07:28] LABS: Blood Urea Nitrogen 7 mg/dL (9-23); Carbon Dioxide 19 mmol/L (20-31); Chloride 111 mmol/L (98-107)
[2025-03-29 07:31] LABS: Basophils # (auto) 0 10 ^3/uL (0-0.2); Basophils % (auto) 0.3 % (0.0-2.0); Eosinophils # (auto) 0 10 ^3/uL (0-0.8); Hematocrit 34.5 % (36.0-46.0); Hemoglobin 11.7 g/dL (12.2-16.2); Lymphocytes # (auto) 1.6 10 ^3/uL (0.4-5.4); Lymphocytes % (auto) 23.9 % (10.0-50.0); Mean Corpuscular Hemoglobin 26.7 pg (28.0-32.0); Mean Corpuscular Hgb Conc. 33.9 g/dL (32.0-36.0); Mean Corpuscular Volume 78.6 fL (80.0-100.0); Monocytes # (auto) 0.3 10 ^3/uL (0-1.3); Neutrophils # (auto) 4.8 10 ^3/uL (1.6-8.6); Neutrophils % (auto) 70.8 % (37.0-80.0); Nucleated Red Blood Cells % 0.1 %; Platelet Count (auto) 294 10^3/uL (140-450); Red Blood Cells 4.39 10^6/uL (4.0-5.20); Red Cell Distribution Width 17.1 % (11.8-14.3); White Blood Cell 6.9 10^3/uL (4.4-10.8)
[2025-03-29] MEDS: GELATIN 1 SPONGE SIZE 50 TOP ONE (08:11)
--- NOTE | 2025-03-29 09:09 | DVH ---
US US GUIDANCE FOR NEEDLE PLACEME, HISTORY: LIVER BX PROCEDURE: Informed consent was obtained. The patient was placed supine on the CT scanner, and limite d US was performed of the liver. IV sedation was administered. The skin over the area of interest was prepped with chlorhexidine which was allowed to dry and draped in the usual sterile fashion. Time ou t was performed. 1% local lidocaine was administered. With [intermittent US guidance, Tem[place] 17 gauge outer coaxial guiding needle was advanced into the left hepatic mass. 1 core biopsies were obtained u sing Temno 18 gauge inner core biopsy needle. The specimens were placed in formalin and sent to patho logy for analysis. The needle was withdrawn , and the visceral tract embolized with gelfoam pledgets. 8minutes of pressure held. Post procedural images were obtained. No immediate complication was ident ified. SEDATION: Dr. Mary Ann Benites was personally responsible for the administration of moderate sedation during the procedure performed, including the use of an independent trained observer who had no other duties during the procedure. The drugs utilized were IV fentanyl and versed (see nursing log for details). The total time of supervision by the attending physician was approximately 45 minutes. FINDINGS: Intra-procedural images demonstrate biopsy needle within the margin of targeted lesion. Po st procedural images do not demonstrate any significant hemorrhage. IMPRESSION: US guided left liver mass core biopsy. Pathology results pending. 3 hours bedrest.
[2025-03-29] MEDS: cefTRIAXone 1GM/50ML D5W 50 ML IV SCH (09:17)
--- NOTE | 2025-03-29 11:23 | DVHPN2 ---
Subjective The patient is seen and examined at bedside. No complaint today. Reviewed: Care Plan, H&P, Labs, Medications, Previous Orders, Radiology Changes from previous H/P or p: No Changes Gastrointestinal: Nausea, Vomiting, Abdominal Pain Objective Vitals Vital Signs Date Time Temp Pulse Resp B/P (MAP) Pulse Ox O2 Delivery O2 Flow Rate FiO2 03/29/25 09:22 130/72 03/29/25 09:15 98.0 72 16 96 98.0 03/29/25 07:54 Room Air* 0 21 Intake/Output Intake and Output 03/29/25 07:00 Intake Total 1225 ml Balance 1225 ml Intake Oral 490 ml IV Total 735 ml # Voids 9 # Bowel Movements 6 General Appearance: Alert, Oriented X3 HEENT: Atraumatic, PERRLA Lungs: Clear to auscultation Abdomen: Normal bowel sounds Medications Current Medications Medications Dose Ordered Sig/Gilbert Route Start Time Stop Time Status Last Admin Dose Admin Acetaminophen/ Hydrocodone Bitart 1 tab Q4HP PRN PO 03/24/25 07:00 Ondansetron HCl 4 mg Q4HP PRN IV 03/24/25 07:00 Acetaminophen 650 mg Q6HP PRN PO 03/24/25 07:00 Morphine Sulfate 2 mg Q4HPRN PRN IV 03/24/25 07:00 Amlodipine Besylate 10 mg DAILY PO 03/24/25 10:00 03/29/25 09:21 10 MG Atorvastatin Calcium 20 mg HS PO 03/24/25 22:00 03/28/25 21:01 20 MG Levothyroxine Sodium 50 mcg QAM PO 03/24/25 08:48 03/29/25 05:12 50 MCG Metoprolol Tartrate 25 mg DAILY PO 03/24/25 10:00 Hold Cholecalciferol 2,000 unit DAILY PO 03/24/25 10:00 03/29/25 09:22 2,000 UNIT Cyanocobalamin 1,000 mcg DAILY PO 03/24/25 10:00 03/29/25 09:22 1,000 MCG Folic Acid 1 mg DAILY PO 03/24/25 10:00 03/29/25 09:17 1 MG Losartan Potassium 100 mg DAILY PO 03/24/25 10:00 03/29/25 09:22 100 MG Patient Own Medication 1 cap DAILY PO 03/24/25 10:00 03/26/25 09:38 1 CAP Hydralazine HCl 10 mg Q6HP PRN IV 03/24/25 10:00 03/26/25 05:06 10 MG Sucralfate 1 gm TID PO 03/25/25 14:00 03/29/25 05:12 1 GM Pantoprazole Sodium 40 mg BID@0600,1700 PO 03/28/25 17:00 03/29/25 05:12 40 MG Ceftriaxone Sodium 50 ml @ 100 mls/hr DAILY@09 IV 03/29/25 09:00 03/29/25 09:17 100 MLS/HR Laboratory Results Laboratory Tests 03/29/25 06:13 Chemistry Test 03/29/25 06:13 Calcium Level 10.0 mg/dL (8.7-10.4) Magnesium Level 1.9 mg/dL (1.6-2.6) Urinalysis Test 03/24/25 07:38 Urine Color Light-yellow (Yellow) Urine Clarity Clear (Clear) Urine pH 6.5 (5.0-9.0) Urine Specific [place] > 1.035 (1.001-1.035) Urine Protein Trace (Negative) H Urine Ketones Negative (Negative) Urine Blood Negative /uL (Negative) Urine Nitrite Negative (Negative) Urine Bilirubin Negative (Negative) Urine Urobilinogen Normal mg/dL (Negative) Urine Leukocyte Esterase Negative /uL (Negative) Urine RBC <1 /hpf (0 - 4) Urine Microscopic WBC < 1 /HPF (0-5) Urine Squamous Epithelial Cells Few /hpf (<5) Urine Bacteria None seen /hpf (None Seen) Urine Glucose Normal mg/dL (Normal) Microbiology Microbiology Date/Time Source Procedure Growth Status 03/24/25 08:36 Blood Blood Culture - Final NO GROWTH AFTER 5 DAYS OF INCUBATION. Complete 03/24/25 07:38 Voided Urine Urine Culture - Final Complete Labs and/or images reviewed: Labs reviewed by me Assessment/Plan Assessment/Plan # Liver Malignancy- Will get IR Liver Biopsy waiting for biopsy report # Thyroid Mass- Will get US thyroid # Bowel Obstruction ruled out, colonic spasm Plan discussed with: Patient Date of Service: March 29, 2025 Billing Provider: TASIA GARZA MD Common Visit Codes: [id number] INP/OBS CARE(HIGH) TASIA GARZA MD March 29, 2025 11:23
--- NOTE | 2025-03-29 12:34 | DVHPN2 ---
Progress Note Date Seen: March 29, 2025 Medical Necessity Reason Pt with a Central, PICC or Fol: No Objective vital signs Vital Sign Date Time Temp Pulse Resp B/P (MAP) Pulse Ox O2 Delivery O2 Flow Rate FiO2 03/29/25 09:22 130/72 03/29/25 09:15 98.0 72 16 96 98.0 03/29/25 07:54 Room Air* 0 21 Total Intake and Output 03/28/25 03/28/25 03/29/25 15:00 23:00 07:00 Intake Total 110 ml 1115 ml 0 ml Balance 110 ml 1115 ml 0 ml medications Current Medications Medications Dose Ordered Sig/Gilbert Route Start Time Stop Time Status Last Admin Dose Admin Acetaminophen/ Hydrocodone Bitart 1 tab Q4HP PRN PO 03/24/25 07:00 Ondansetron HCl 4 mg Q4HP PRN IV 03/24/25 07:00 Acetaminophen 650 mg Q6HP PRN PO 03/24/25 07:00 Morphine Sulfate 2 mg Q4HPRN PRN IV 03/24/25 07:00 Amlodipine Besylate 10 mg DAILY PO 03/24/25 10:00 03/29/25 09:21 10 MG Atorvastatin Calcium 20 mg HS PO 03/24/25 22:00 03/28/25 21:01 20 MG Levothyroxine Sodium 50 mcg QAM PO 03/24/25 08:48 03/29/25 05:12 50 MCG Metoprolol Tartrate 25 mg DAILY PO 03/24/25 10:00 Hold Cholecalciferol 2,000 unit DAILY PO 03/24/25 10:00 03/29/25 09:22 2,000 UNIT Cyanocobalamin 1,000 mcg DAILY PO 03/24/25 10:00 03/29/25 09:22 1,000 MCG Folic Acid 1 mg DAILY PO 03/24/25 10:00 03/29/25 09:17 1 MG Losartan Potassium 100 mg DAILY PO 03/24/25 10:00 03/29/25 09:22 100 MG Patient Own Medication 1 cap DAILY PO 03/24/25 10:00 03/26/25 09:38 1 CAP Hydralazine HCl 10 mg Q6HP PRN IV 03/24/25 10:00 03/26/25 05:06 10 MG Sucralfate 1 gm TID PO 03/25/25 14:00 03/29/25 05:12 1 GM Pantoprazole Sodium 40 mg BID@0600,1700 PO 03/28/25 17:00 03/29/25 05:12 40 MG Ceftriaxone Sodium 50 ml @ 100 mls/hr DAILY@09 IV 03/29/25 09:00 03/29/25 09:17 100 MLS/HR laboratory and microbiology Laboratory Tests 03/29/25 06:13 Test 03/29/25 06:13 Range/Units Serum Glucose 106 74-106 mg/dL Problem List/Assessment/Plan Problem List/Assessment/Plan 03/25/25 gastrografin small bowel series essentially normal except abnormality at level of ascending colon. she had several bowel movements and is passing flatus, I have removed her NGT, she may have po liquids, requested GI consult for colonoscopy., abdomen is non tender, non distended 03/29/25 normal bowel activity, colonoscopy report reviewed, sigmoid stricture may need to be addressed once all other issues investigated, will sign off for now, please recall if needed Plan discussed with: Patient, Other Dietary Evaluation Review Comments: 1. Recommend further diet progression to Regular diet for least-restrictive diet possible 2. Continue bowel clean-out 3. On folic acid, B12 supplementation, consider rechecking labs Expected Outcomes/Goals: Diet progression, adequate nutritional intake. NAVDEEP KILLIAN MD March 29, 2025 12:34
--- NOTE | 2025-03-29 22:46 | DVHPN2 ---
Progress Note - Dictate Date Seen: March 29, 2025 Medical Necessity Reason Pt with a Central, PICC or Fol: No Subjective S/P liver biopsy today by radiologist Patient is resting comfortably offers no complaints MRI of the abdomen suggestive of metastatic liver disease No clear-cut mass seen in the ascending colon ; tumor markers negative or normal Last colonoscopy was in September of 2022 which showed mild ileitis diverticular disease and no mass at that time vital signs Vital Sign Date Time Temp Pulse Resp B/P (MAP) Pulse Ox O2 Delivery O2 Flow Rate FiO2 03/29/25 21:00 97.7 63 17 148/37 (74) 97 97.7 03/29/25 07:54 Room Air* 0 21 Total Intake and Output 03/28/25 03/28/25 03/29/25 14:59 22:59 06:59 Intake Total 110 ml 1115 ml 0 ml Balance 110 ml 1115 ml 0 ml medications Current Medications Medications Dose Ordered Sig/Gilbert Route Start Time Stop Time Status Last Admin Dose Admin Acetaminophen/ Hydrocodone Bitart 1 tab Q4HP PRN PO 03/24/25 07:00 Ondansetron HCl 4 mg Q4HP PRN IV 03/24/25 07:00 Acetaminophen 650 mg Q6HP PRN PO 03/24/25 07:00 Morphine Sulfate 2 mg Q4HPRN PRN IV 03/24/25 07:00 Amlodipine Besylate 10 mg DAILY PO 03/24/25 10:00 03/29/25 09:21 10 MG Atorvastatin Calcium 20 mg HS PO 03/24/25 22:00 03/29/25 21:05 20 MG Levothyroxine Sodium 50 mcg QAM PO 03/24/25 08:48 03/29/25 05:12 50 MCG Metoprolol Tartrate 25 mg DAILY PO 03/24/25 10:00 Hold Cholecalciferol 2,000 unit DAILY PO 03/24/25 10:00 03/29/25 09:22 2,000 UNIT Cyanocobalamin 1,000 mcg DAILY PO 03/24/25 10:00 03/29/25 09:22 1,000 MCG Folic Acid 1 mg DAILY PO 03/24/25 10:00 03/29/25 09:17 1 MG Losartan Potassium 100 mg DAILY PO 03/24/25 10:00 03/29/25 09:22 100 MG Patient Own Medication 1 cap DAILY PO 03/24/25 10:00 03/26/25 09:38 1 CAP Hydralazine HCl 10 mg Q6HP PRN IV 03/24/25 10:00 03/26/25 05:06 10 MG Sucralfate 1 gm TID PO 03/25/25 14:00 03/29/25 21:05 1 GM Pantoprazole Sodium 40 mg BID@0600,1700 PO 03/28/25 17:00 03/29/25 17:42 40 MG Ceftriaxone Sodium 50 ml @ 100 mls/hr DAILY@09 IV 03/29/25 09:00 03/29/25 09:17 100 MLS/HR objective General Appearance: Alert, Oriented X3, Cooperative, Not in acute distress HEENT: Atraumatic, Mucous membranes moist/pink Respiratory: Clear to auscultation, Normal air movement, bilateral wheezing Cardiovascular: Regular rate, Normal S1, Normal S2, No murmurs Abdominal: Active bowel sounds, Soft, no distention, mild lower abd tenderness Extremities: no edema, Normal pulses, No tenderness/swelling Skin: No Significant rash, except past surgical scars Neuro: Normal speech, sensorimotor deficits none Psych/Mental Status: Mental status NL, Mood NL Nurse was there as sharperone during examination laboratory and microbiology Laboratory Tests 03/29/25 06:13 Test 03/29/25 06:13 Range/Units Serum Glucose 106 74-106 mg/dL Problems(with codes): (1) Abnormal finding on GI tract imaging (2) Projectile vomiting with nausea (3) Intractable abdominal pain Prognosis Plan Await final pathology results Advance diet as tolerated Discharge planning as per hospitalist Patient will need follow up in my office and discharge clinic in 1-2 weeks If clinically indicated patient will be referred to Oncology pending pathology results As noted above her tumor markers were negative Dietary Evaluation Review Comments: 1. Recommend further diet progression to Regular diet for least-restrictive diet possible 2. Continue bowel clean-out 3. On folic acid, B12 supplementation, consider rechecking labs Expected Outcomes/Goals: Diet progression, adequate nutritional intake. Plan discussed with: Patient QUITA VALENTE MD March 29, 2025 22:46
[2025-03-30 01:00] VITALS: BP 109/59; PULSE 57; RESP 19; TEMP 98.3; O2SAT 94
[2025-03-30 05:00] VITALS: BP 121/44; PULSE 58; RESP 16; TEMP 98; O2SAT 97
[2025-03-30 08:00] VITALS: PULSE 66
[2025-03-30 08:35] VITALS: BP 135/68; PULSE 62; RESP 17; TEMP 97.8; O2SAT 97
[2025-03-30] MEDS ORDERED: METR-344 PO (11:49)
[2025-03-30] MEDS ORDERED: LEVO500T91 PO (11:49)
--- NOTE | 2025-03-30 11:51 | DVHDS2 ---
Discharge Summary Date of Admission March 24, 2025 at 06:56 Date of Discharge: March 30, 2025 Admitting Diagnosis # Liver Malignancy- the Cipro sleep about # Thyroid Mass # Bowel Obstruction ruled out, colonic spasm Labs/Diagnostic Data: Laboratory Results Test 03/29/25 06:13 03/28/25 05:13 03/26/25 11:08 03/25/25 12:30 White Blood Count 6.9 10^3/uL (4.4-10.8) Red Blood Count 4.39 10^6/uL (4.0-5.20) Hemoglobin 11.7 g/dL (12.2-16.2) Hematocrit 34.5 % (36.0-46.0) Mean Corpuscular Volume 78.6 fL (80.0-100.0) Mean Corpuscular Hemoglobin 26.7 pg (28.0-32.0) Mean Corpuscular Hemoglobin Concent 33.9 g/dL (32.0-36.0) Red Cell Distribution Width 17.1 % (11.8-14.3) Platelet Count 294 10^3/uL (140-450) Mean Platelet Volume 9.4 fL (6.9-10.8) Neutrophils (%) (Auto) 70.8 % (37.0-80.0) Lymphocytes (%) (Auto) 23.9 % (10.0-50.0) Monocytes (%) (Auto) 5.0 % (0.0-12.0) Eosinophils (%) (Auto) 0.0 % (0.0-7.0) Basophils (%) (Auto) 0.3 % (0.0-2.0) Neutrophils # (Auto) 4.8 10 ^3/uL (1.6-8.6) Lymphocytes # (Auto) 1.6 10 ^3/uL (0.4-5.4) Monocytes # (Auto) 0.3 10 ^3/uL (0-1.3) Eosinophils # (Auto) 0 10 ^3/uL (0-0.8) Basophils # (Auto) 0 10 ^3/uL (0-0.2) Nucleated Red Blood Cells 0.1 % Sodium Level 142 mmol/L (136-145) Potassium Level 3.6 mmol/L (3.5-5.1) Chloride Level 111 mmol/L (98-107) Carbon Dioxide Level 19 mmol/L (20-31) Anion Gap 12 (5-15) Blood Urea Nitrogen 7 mg/dL (9-23) Creatinine 1.06 mg/dL (0.550-1.02) Glomerular Filtration Rate Calc 53 mL/min (>90) BUN/Creatinine Ratio 6.6 (10.0-20.0) Serum Glucose 106 mg/dL (74-106) Calcium Level 10.0 mg/dL (8.7-10.4) Magnesium Level 1.9 mg/dL (1.6-2.6) Prothrombin Time 11.6 sec (9.3-11.8) Prothrombin Time INR 1.11 (0.9-1.15) Activated Partial Thromboplast Time 28.6 SEC (24.5-34.5) Total Bilirubin 0.4 mg/dL (0.2-1.0) Aspartate Amino Transferase (AST) 19 U/L (13-40) Alanine Aminotransferase (ALT) 12 U/L (7-40) Alkaline Phosphatase 77 U/L (46-116) Total Protein 6.7 g/dL (5.7-8.2) Albumin 4.0 g/dL (3.2-4.8) POC Glucose 85 mg/dl (70-106) Tumor Marker Alpha Fetoprotein 2.1 ng/mL (0.0-8.7) CA 19-9 Antigen 34 U/mL (0-35) CA 125 Antigen 14.6 U/mL (0.0-38.1) Test 03/25/25 06:45 03/24/25 08:36 03/24/25 07:38 03/24/25 03:58 Carcinoembryonic Antigen 0.91 ng/mL (<=5.0) Lactic Acid Level 0.6 mmol/L (0.4-2.0) Urine Color Light-yellow (Yellow) Urine Clarity Clear (Clear) Urine pH 6.5 (5.0-9.0) Urine Specific [place] > 1.035 (1.001-1.035) Urine Protein Trace (Negative) Urine Ketones Negative (Negative) Urine Blood Negative /uL (Negative) Urine Nitrite Negative (Negative) Urine Bilirubin Negative (Negative) Urine Urobilinogen Normal mg/dL (Negative) Urine Leukocyte Esterase Negative /uL (Negative) Urine RBC <1 /hpf (0 - 4) Urine Microscopic WBC < 1 /HPF (0-5) Urine Squamous Epithelial Cells Few /hpf (<5) Urine Bacteria None seen /hpf (None Seen) Urine Glucose Normal mg/dL (Normal) Hemoglobin A1c 5.7 % A1C (<5.7) Troponin I High Sensitivity 8 ng/L (</=34) Other Laboratory Tests 03/29/25 06:13 Brief Hx & Hospital Course: 79 years old female with past medical history hypertension, GERD, prediabetic, hypothyroidism, thyroidectomy, came to emergency department because of intractable nausea and vomiting. The patient was found to have hepatic lesion status post biopsy and waiting for pathology report. The patient also had a colonoscopy done by GI specialist. Dr. Mcclelland unable to finish a colonoscopy because the patient has sigmoid spasm we attempted multiple times unable to pass the scope through. At about 25-30 cm above the anal verge there was sharp sigmoid tortuosity severe diverticular disease and angulation. The colonoscope was then withdrawn. Patient had trace to 1+ internal hemorrhoids and no fresh or old blood was seen in the colon. Recommend outpatient procedure when patient can tolerate it. The patient is able to tolerate diet this time and passed flatus. So the patient will be discharged home today. Advised her to follow up with primary care physician 1-2 weeks. Follow up with GI specialist per schedule. Follow up with surgeon per schedule. Physical exam HEENT: Normocephalic atraumatic pupils equal react to light and accommodation. Extraocular muscles intact, conjunctiva pink, oropharynx moist, no thrush, no exudate. Lymphatic: No lymphadenopathy Cardiovascular exam: S1, S2 was heard. No murmurs, rubs, gallops Lung: Clear on auscultation bilaterally, no wheeze, rale, rhonchi. GI: Abdominal soft, nondistended, nontenderness, positive bowel sounds. Extremity: No crepitus, cyanosis, edema. Pedal pulses present bilateral. Full range of motion. Skin: Normal turgor, no rash. Psych: Alert, oriented x3. Neurology: No focal deficits, cranial nerve II to XII grossly intact. This medical document was created using an electronic medical record system with [employer] direct computerized dictation system. Although this document has been carefully reviewed, there may still be some phonetic and typographical errors. These areas are purely typographical due to imperfections of the software programs, and do not reflect any compromise in the patient's medical care. Condition at Discharge: Stable Final Diagnosis/Problems List DIVERTICULITIS SIGMOID STRICTURE Discharge Disposition: Home Discharge Instruct/Medications Diet: Cardiac 2g Na,low cholest Diet comment: INCREASE FIBER Activity: No Restrictions, As Tolerated Follow Up/Referral: PCP 1-[address] KILLIAN, SURGEON PER SCHEDULE DR MCCLELLAND, GI PER SCHEDULE Discharge Statement: "Patient was advised to return to the ER or call 911 if any headaches, dizziness, shortness of breath, chest pain, abdominal pain, bleeding, fevers, or worsening of medical condition. Patient was counseled about treatment plan, medications, possible side effects, patient�verbalized understanding. All questions were answered to the best of my ability. This discharge took greater then 30 minutes in planning, reviewing documentation, counseling the patient, and discussing with other team members." ASSESSMENT ASSESSMENT Assessment DIVERTICULITIS SIGMOID STRICTURE Date of Service: March 30, 2025 Billing Provider: TASIA GARZA MD Common Visit Codes: 24821-[id number] DISCH DAY >30min TASIA GARZA MD March 30, 2025 11:51
[2025-03-30 13:00] VITALS: BP 143/64; PULSE 64; RESP 16; TEMP 97.9; O2SAT 98
[2025-03-30 15:09] VITALS: BP 135/68; TEMP 36.6
== END 2025-03-30 16:27 | disposition home or self-care (01) | DRG 388 ==
LOC: ER 03:40 → EDBD 03:40 → OVERFLOW 06:56 → TELE-WESTW 15:31
PROVIDERS: ADMIT Internal Medicine; ATTEND Internal Medicine
PROC: 0DJD8ZZ Inspection of Lower Intestinal Tract, Via Natural or Artificial Opening Endoscopic (ICD-10-PCS; principal; 2025-03-28 13:40)
PROC: 0FB23ZX Excision of Left Lobe Liver, Percutaneous Approach, Diagnostic (ICD-10-PCS; 2025-03-29)
DX: K56.699 Other intestinal obstruction unspecified as to partial versus complete obstruction (principal); K65.9 Peritonitis, unspecified; K57.32 Diverticulitis of large intestine without perforation or abscess without bleeding; N28.1 Cyst of kidney, acquired; K57.30 Diverticulosis of large intestine without perforation or abscess without bleeding; K76.9 Liver disease, unspecified; E87.6 Hypokalemia; K21.9 Gastro-esophageal reflux disease without esophagitis; I10 Essential (primary) hypertension; Z90.49 Acquired absence of other specified parts of digestive tract; Z79.899 Other long term (current) drug therapy
CPT/HCPCS: 36415; 45378; 47000; 71045; 74177; 74183; 74250; 76536; 76942; 80048; 80053; 81001; 82105; 82378; 82962; 83036; 83605; 83735; 84484; 85025; 85610; 85730; 86301; 86304; 87040; 87086; 93005; 96361; 96365; 96375; 99291; G0378; J1100; J2250; J2405; J2470; J2543; J3480; J3490